=== PATIENT | female | born 1975 | race Caucasian/White ===

== ENCOUNTER 2024-09-27 00:20 | Day surgery (SDC) | payer OTHER, SELFPAY ==
[2024-09-20 14:54] VITALS: BMI 30.8
[2024-09-27 09:14] VITALS: BP 143/85; PULSE 74; RESP 16; TEMP 35.9; O2SAT 100; BMI 30.6
[2024-09-27 09:20] LABS: BEDSIDEPREGUCG Negative (Negative)
[2024-09-27] MEDS: LACTATED RINGERS 1,000 ML 150 ML IV CONT (09:25)
--- NOTE | 2024-09-27 09:46 | WPDANESEPPF ---
Anes - Initial Pre Proc Eval Procedure: Operation Date: 09/27/24 10:30 Proposed Procedures p Colonoscopy - Asher Villalta MD Date/Time: 09/27/24 09:46 Surgeon: Asher Villalta MD Pre Op Diagnosis: Fatigue Patient Data Age: 49 Gender: F Height: 1.55 m Weight: 73.5 kg Last Vital Signs Temp 35.9 C L 09/27/24 09:14 Pulse 74 09/27/24 09:14 Resp 16 09/27/24 09:14 BP 143/85 H 09/27/24 09:14 Pulse Ox 100 09/27/24 09:14 O2 Del Method Room Air 09/27/24 09:14 Allergies Allergy/AdvReac Type Severity Reaction Status Date / Time hyoscyamine (From Levsin) Allergy Severe SEE Verified 09/27/24 09:10 COMMENT BOX Home Medications ?Medication ?Instructions ?Recorded ?Confirmed ?Type sertraline 100 mg tablet (Zoloft) 100 mg PO DAILY 03/15/23 09/27/24 History alprazolam 0.5 mg tablet 0.5 mg PO DAILY PRN anxiety 07/26/24 09/20/24 History tirzepatide (weight loss) 2.5 2.5 mg (0.5 mL) subcut WEEKLY 4 09/10/24 09/27/24 Rx mg/0.5 mL subcutaneous solution weeks #2 mL (Zepbound) cholecalciferol (vitamin D3) 1,250 1,250 mcg PO WEEKLY #12 tabs 09/12/24 09/27/24 Rx mcg (50,000 unit) tablet Laboratory Tests 09/27/24 09:18 POC Urine HCG, Qual Negative (Negative) Patient hx anesthesia problems: none Family hx anesthesia problems: none Results Review: All pre-operative results and documents have been reviewed as part of the pre-operative evaluation. 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 Gender identity (if verbalized by the patient): Female Sexual Orientation (if Verbalized by the Patient): Straight or Heterosexual Spiritual care concerns: No Agree to blood products: Yes Anes - Eval Final PreProcedure Day of Procedure 09/27/24 09:46 Patient weight: obese Heart: regular rate and rhythm Lungs: clear to auscultation Airway: Mallampati scale class II Neurological: alert and oriented Last oral intake: >/= 8 hours ASA classification: II Emergent: no Anesthetic plan: proceed Anesthesia type and monitoring: general GIVS and standard monitoring Results Review: All pre-operative results and documents have been reviewed as part of the pre-operative evaluation. Informed Consent: The patient's anesthetic plan and its attendant risks and benefits were discussed with the patient/family/POA. Questions were solicited and answers provided to the satisfaction of the patient/family/POA.
--- NOTE | 2024-09-27 10:02 | PM.IMHP ---
H&P: HPI History of Present Illness Date/Time: 09/27/24 10:02 Chief Complaint: Screening colonoscopy Narrative: This is the patient's first colonoscopy. There are no GI symptoms and there is no family history of colorectal cancer. 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 Smoking status: Former smoker Tobacco type: cigarettes Smoking end date: 07/31/24 Alcohol intake: current Alcohol use details: socially Substance use: never Substance use type: does not use Do You Feel Safe in your Home?: Yes Lack of Transportation: No Lack of Food: Sometimes True Current Housing: I Have Housing Concerned About Future Housing: No Difficulty Paying Gas/Electric Bills: No Difficulty Paying for Meds: No Currently Unemployed: No Education: High School Diploma/GED Difficulty w/ Childcare or Family Care: No Living arrangements: with family Occupation/Education: occupation Additional occupation/education comments: [employer] 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 Gender identity (if verbalized by the patient): Female Sexual Orientation (if Verbalized by the Patient): Straight or Heterosexual Spiritual care concerns: No Agree to blood products: Yes Meds Home Medications and Allergies Home Medications ?Medication ?Instructions ?Recorded ?Confirmed ?Type sertraline 100 mg tablet (Zoloft) 100 mg PO DAILY 03/15/23 09/27/24 History alprazolam 0.5 mg tablet 0.5 mg PO DAILY PRN anxiety 07/26/24 09/20/24 History tirzepatide (weight loss) 2.5 2.5 mg (0.5 mL) subcut WEEKLY 4 12/31/24 01/17/25 Rx mg/0.5 mL subcutaneous solution weeks #2 mL (Zepbound) cholecalciferol (vitamin D3) 1,250 1,250 mcg PO WEEKLY #12 tabs 09/12/24 09/27/24 Rx mcg (50,000 unit) tablet Allergies Allergy/AdvReac Type Severity Reaction Status Date / Time hyoscyamine (From Levsin) Allergy Severe SEE Verified 09/27/24 09:10 COMMENT BOX Vital Signs Vital Signs - 24 hr 09/27/24 09:14 Temperature 96.6 F L Pulse Rate 74 Respiratory Rate 16 Blood Pressure 143/85 H Pulse Oximetry 100 Oxygen Delivery Room Air Exam Const: General: cooperative and healthy appearing Resp: Effort & Inspection: normal respiratory effort and able to speak in complete sentences Auscultation: clear to auscultation bilaterally Cardio: Rate: regular rate Rhythm: regular rhythm GI: Inspection: normal to inspection GI Palp: No No hepatosplenomegaly present Auscultation: normal bowel sounds Rectal Exam: deferred Skin: General skin exam: normal color Psych: Appearance: grossly normal Mental Status: mental status grossly normal Assessment and Plan Assessment and plan (1) Encounter for screening colonoscopy: Code(s): Z12.11 - Encounter for screening for malignant neoplasm of colon Status: Acute Assessment and Plan: The patient is deemed a good candidate for the procedure. Consent signed. Will proceed.
[2024-09-27 10:28] VITALS: BP 120/80; PULSE 73; RESP 25; O2SAT 100
[2024-09-27 10:38] VITALS: BP 138/87; PULSE 73; RESP 21; O2SAT 100
[2024-09-27 10:48] VITALS: BP 141/84; PULSE 54; RESP 18; O2SAT 100
--- OUTSIDE RECORDS SUMMARY | 2024-10-03 04:41 | XMS_ITS | Data Portability ---
Author Organization [place] - [employer], Main Office Address [address] [place] [address] Care Team Providers Care Sourcing Analyst Name Role Phone SCOT LAUREANO Primary Care Provider SCOT LAUREANO Referring Provider Assessment Encounter Date Assessment Date Assessment LastModified by Organization Details LastModified Time 06/24/2024 06/24/2024 49-year-old female presents for evaluation of her right knee. She reports 3-4 months of atraumatic pain that is getting progressively worse. It is worse at the end of the day after she has been standing all day, with swelling, and posterior pain. 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 She has been taking ibuprofen, heat, has not had any other treatments. She currently rates pain as 5/10. She denies having any catching or locking up of the knee, just swelling. Review of systems per patient questionnaire Physical exam: 1+ effusion. Tenderness palpation over the lateral joint line. Range of motion 0-140, discomfort with terminal flexion, negative Dany's. 1A Lorna, stable posterior drawer, stable varus and valgus stress. Sensation intact to light touch. X-rays of the knee were reviewed, demonstrating no acute bony abnormality, preserved joint space For her knee pain, we will begin with a course of conservative management. I recommend a course of meloxicam as well as physical therapy, however she says her schedule restrict her at so we will give her a home exercise program printout to do. We will see her back in approximately 6 weeks as needed. If she does not have improvement, we discussed next steps would be to consider doing a cortisone injection. She is in agreement with the plan. [email or web address] Not available 06/24/2024 11:15:26 Plan of Treatment Reminders Order Date Submit Date Provider Last Modified By Organization Details Last Modified Time Details Appointments None recorded. Lab None recorded. Referral None recorded. Procedures None recorded. Surgeries None recorded. Imaging XR, knee 2023 024 [email or web address] [facility], [address], [place], [address], 12:20:17 Medication Orders phentermine 37.5 mg tablet 2022 023 [email or web address] [facility] #[id number], [address], [place], [place], [id number], 09:16:56 alprazolam 0.5 mg tablet 2022 [facility]23 [facility] #[id number], [address], [place], [place], [id number], 09:15:20 meloxicam 15 mg tablet 2023 024 [email or web address] [facility] #35323, [address], [place], [place], [id number], 12:20:17 Patient TargetsNo targets recorded. Patient InstructionsNo instructions recorded. Reason for Referral None Reported. Results Created Date Observation Date Name Description Value Unit Range Abnormal Flag Note LastModifiedBy Organization Detail LastModifiedTime 11/08/1911/08/2022 COLOG UARD cologuard result cancel led - duplic ate order not applic able Not Available [facility] (Cologuard Orders Only) [address], [place], [address], 11/08/2022 09:16:16 11/07/19 23 11/07/2022 VITAM IN D,25- OH,TO IRAJ,I A vitamin D,25-oh,tota l,ia 19 NG/mL 30-100 low Vitam in D Statu s 25-OH Vitam in D: Defic iency : <20 ng/mL Insuf ficie ncy: 20 - 29 ng/mL Optim al: > or = 30 ng/mL For 25-OH Vitam in D testi ng on patie nts on D2-brantley pplem entat ion and patie nts for whom quant itati on of D2 and D3 fract ions is requi red, the [employer] Assur eD(TM ) 25-OH VIT D, (D2,D 3), LC/MS /MS is recom mt d: order code 28027 (dutch ents >2yrs ). See Note 1 NO COLLE CTION DATE RECEI ROSALIND. WE HAVE USED THE DATE THE SPECI MEN WAS RECEI ROSALIND BY THIS LABOR ATORY THE COLLE CTION DATE. IF THIS IS INCOR RECT, RASHIDA Doyle CONTA CT CLIEN T SERVI DESTIN. PHONE NUMBE R: [phone] Note 1 For addit ional infor rashida dias refer to http: //[facility] omar martin.Que stDia gnost ics.c om/fa q/FAQ 199 (This link is being provi ded for infor teodora mancini/ educorlando toure purpo ses only. ) Not Available [facility] [address] [place], [address], 11/07/2022 10:47:01 11/07/19 23 11/07/2022 TSH TSH 1.76 mIU/L normal Refer ence Range > or = 20 Years 0.40- 4.50 Pregn fany Range s First trime ster 0.26- 2.66 Secon d trime ster 0.55- 2.73 Third trime ster 0.43- 2.91 Not Available [facility] [address] [place], [address], 11/07/2022 10:47:00 11/07/19 23 11/07/2022 ANTIN UCLEA R ANTIB ODIES TITER AND PATTE RN ROSI titer 1:80 titer high A low level ROSI titer may be prese nt in pre-c linic al autoi mmune disea ses and luis alberto l indiv idual s. Refer ence Range <1:40 Negat soraida 1:40- 1:80 Low Antib umang Level >1:80 [place] catherine Antib umang Level Not Available [facility] [address] [address] [address], [place], [address], 11/07/2022 10:46:59 11/07/19 23 11/07/2022 ANTIN UCLEA R ANTIB ODIES TITER AND PATTE RN ROSI pattern nuclea r, homoge neous abnormal Homog eneou s patte rn is assoc iated with syste bev lupus eryth emato lloyd (SLE) , drug- induc ed lupus and josseline ile idiop athic arthr itis. AC-1: Homog eneou s Inter natio nal Conse nsus on ROSI Patte rns (http s://d oi.or g/10. 1515/ [facility]- 2017- 0052) Not Available [facility] [address] [address] [address], [place], [address], 11/07/2022 10:46:59 11/07/19 23 11/07/2022 ROSI SCREE N, IFA, W/REF L TITER /RAVEN FACUNDO (REFL ) ROSI screen, ifa positi ve negati ve abnormal ROSI IFA is a first line scree n for detec ting the prese nce of up to appro ximat jackeline 150 autoa ntibo dies in vario us autoi mmune disea ses. A posit soarida ROSI IFA resul t is sugge stive of autoi mmune disea se and refle xes to titer and patte rn. Furth er labor atory testi ng may be consi dered if clini jessica indic ated. For addit ional infor rashida dias e refer to http: //[facility] omar martin.Que stDia gnost ics.c om/fa q/FAQ 177 (This link is being provi ded for infor matitalo nal/ educa alisson l purpo ses only. ) Not Available [facility] [address] [address], [place], [address], 11/07/2022 10:46:59 11/07/19 23 11/07/2022 C-NARCISO CTIVE PROTE IN C-reactive protein 2.3 mg/L <8.0 normal Not Available [address], [address], 11/07/2022 10:46:58 11/07/19 23 11/07/2022 RHEUM ATOID FACTO R rheumatoid factor <14 IU/mL <14 normal Not Available [address], [address], 11/07/2022 10:46:57 11/07/19 23 11/07/2022 CBC (INCL UDES DIFF/ PLT) white blood cell count 6.3 thous and/u L 3.8-10 .8 normal Not Available [address], [address], 11/07/2022 10:46:56 11/07/19 23 11/07/2022 CBC (INCL UDES DIFF/ PLT) red blood cell count 4.80 baudilio on/uL 3.80-5 .10 normal Not Available [address], [address], 11/07/2022 10:46:56 11/07/19 23 11/07/2022 CBC (INCL UDES DIFF/ PLT) hemoglobin 14.5 g/dL 11.7-1 5.5 normal Not Available [address], [address], 11/07/2022 10:46:56 11/07/19 23 11/07/2022 CBC (INCL UDES DIFF/ PLT) hematocrit 42.8 % 35.0-4 5.0 normal Not Available [address], [address], 11/07/2022 10:46:56 11/07/19 23 11/07/2022 CBC (INCL UDES DIFF/ PLT) MCV 89.2 fL 80.0-1 00.0 normal Not Available [address], [address], 11/07/2022 10:46:56 11/07/19 23 11/07/2022 CBC (INCL UDES DIFF/ PLT) MCH 30.2 pg 27.0-3 3.0 normal Not Available [address], [address], 11/07/2022 10:46:56 11/07/19 23 11/07/2022 CBC (INCL UDES DIFF/ PLT) MCHC 33.9 g/dL 32.0-3 6.0 normal Not Available [address], [address], 11/07/2022 10:46:56 11/07/19 23 11/07/2022 CBC (INCL UDES DIFF/ PLT) RDW 12.5 % 11.0-1 5.0 normal Not Available [address], [address], 11/07/2022 10:46:56 11/07/19 23 11/07/2022 CBC (INCL UDES DIFF/ PLT) platelet count 273 thous and/u L 140-40 0 normal Not Available [address], [address], 11/07/2022 10:46:56 11/07/19 23 11/07/2022 CBC (INCL UDES DIFF/ PLT) MPV 10.1 fL 7.5-12 .5 normal Not Available [facility] [address], [address], 11/07/2022 10:46:56 11/07/19 23 11/07/2022 CBC (INCL UDES DIFF/ PLT) absolute neutrophils 3364 cells /uL 1500-7 800 normal Not Available [address], [address], 11/07/2022 10:46:56 11/07/19 23 11/07/2022 CBC (INCL UDES DIFF/ PLT) absolute lymphocytes 2249 cells /uL 850-39 00 normal Not Available [address], [address], 11/07/2022 10:46:56 11/07/19 23 11/07/2022 CBC (INCL UDES DIFF/ PLT) absolute monocytes 586 cells /uL 200-95 0 normal Not Available [address], [address], 11/07/2022 10:46:56 11/07/19 23 11/07/2022 CBC (INCL UDES DIFF/ PLT) lymphocytes 35.7 % normal Not Available [address], [address], 11/07/2022 10:46:56 11/07/19 23 11/07/2022 CBC (INCL UDES DIFF/ PLT) absolute eosinophils 82 cells /uL 15-500 normal Not Available [address], [address], 11/07/2022 10:46:56 11/07/19 23 11/07/2022 CBC (INCL UDES DIFF/ PLT) absolute basophils 19 cells /uL 0-200 normal Not Available [address], [address], 11/07/2022 10:46:56 11/07/19 23 11/07/2022 CBC (INCL UDES DIFF/ PLT) neutrophils 53.4 % normal Not Available [address], [address], 11/07/2022 10:46:56 11/07/19 23 11/07/2022 CBC (INCL UDES DIFF/ PLT) monocytes 9.3 % normal Not Available [address], [address], 11/07/2022 10:46:56 11/07/19 23 11/07/2022 CBC (INCL UDES DIFF/ PLT) eosinophils 1.3 % normal Not Available [address], [address], 11/07/2022 10:46:56 11/07/19 23 11/07/2022 CBC (INCL UDES DIFF/ PLT) basophils 0.3 % normal Not Available [address], [address], 11/07/2022 10:46:56 11/07/19 23 11/07/2022 SED RATE BY MODIF IED WESTE RGREN sed rate by modified westergren 2 mm/h < or = 20 normal Not Available [address], [address], 11/07/2022 10:46:56 11/07/19 23 11/07/2022 COMPR EHENS SORAIDA METAB OLIC PANEL urea nitrogen (BUN) 14 mg/dL 7-25 normal Not Available [address], [address], 11/07/2022 10:46:55 11/07/19 23 11/07/2022 COMPR EHENS SORAIDA METAB OLIC PANEL glucose 75 mg/dL 65-99 normal Fasti ng refer ence inter dion Not Available [address], [address], 11/07/2022 10:46:55 11/07/19 23 11/07/2022 COMPR EHENS SORAIDA METAB OLIC PANEL creatinine 0.88 mg/dL 0.50-0 .99 normal Not Available [address], [address], 11/07/2022 10:46:55 11/07/19 23 11/07/2022 COMPR EHENS SORAIDA METAB OLIC PANEL eGFR 82 mL/mi n/1.7 3m2 > or = 60 normal The eGFR is based on the CKD-E PI 2020 equat ion. To calcu late the new eGFR from a previ ous Creat inine or Cysta sariah C resul t, go to https ://wendy garibay.o renée/shaun ramirez s/ kdoqi /gfr% 5Fcal culat or Not Available [address] [address] [place], [address], 11/07/2022 10:46:55 11/07/19 23 11/07/2022 COMPR EHENS SORAIDA METAB OLIC PANEL BUN/creatini ne ratio not applic able (calc ) 6-22 Not Available [address] [place], [address], 11/07/2022 10:46:55 11/07/19 23 11/07/2022 COMPR EHENS SORAIDA METAB OLIC PANEL sodium 137 mmol/ L 135-14 6 normal Not Available [address] [address] [place], [address], 11/07/2022 10:46:55 11/07/19 23 11/07/2022 COMPR EHENS SORAIDA METAB OLIC PANEL potassium 4.2 mmol/ L 3.5-5. 3 normal Not Available [address] [address] [place], [address], 11/07/2022 10:46:55 11/07/19 23 11/07/2022 COMPR EHENS SORAIDA METAB OLIC PANEL chloride 102 mmol/ L 98-110 normal Not Available [facility] [address] [address] [place], [address], 11/07/2022 10:46:55 11/07/19 23 11/07/2022 COMPR EHENS SORAIDA METAB OLIC PANEL carbon dioxide 25 mmol/ L 20-32 normal Not Available [facility] [address] [address] [place], [address], 11/07/2022 10:46:55 11/07/19 23 11/07/2022 COMPR EHENS SORAIDA METAB OLIC PANEL calcium 9.1 mg/dL 8.6-10 .2 normal Not Available [address], [address], 11/07/2022 10:46:55 11/07/19 23 11/07/2022 COMPR EHENS SORAIDA METAB OLIC PANEL protein, total 6.7 g/dL 6.1-8. 1 normal Not Available [address], [address], 11/07/2022 10:46:55 11/07/1911/07/2022 COMPR EHENS SORAIDA METAB OLIC PANEL albumin 4.2 g/dL 3.6-5. 1 normal Not Available [address], [address], 11/07/2022 10:46:55 11/07/19 23 11/07/2022 COMPR EHENS SORAIDA METAB OLIC PANEL globulin 2.5 g/dL_ (calc ) 1.9-3. 7 normal Not Available [address], [address], 11/07/2022 10:46:55 11/07/19 23 11/07/2022 COMPR EHENS SORAIDA METAB OLIC PANEL albumin/glob ulin ratio 1.7 (calc ) 1.0-2. 5 normal Not Available [address], [address], 11/07/2022 10:46:55 11/07/19 23 11/07/2022 COMPR EHENS SORAIDA METAB OLIC PANEL bilirubin, total 0.3 mg/dL 0.2-1. 2 normal Not Available [address], [address], 11/07/2022 10:46:55 11/07/19 23 11/07/2022 COMPR EHENS SORAIDA METAB OLIC PANEL alkaline phosphatase 55 U/L 31-125 normal Not Available [address], [address], 11/07/2022 10:46:55 11/07/19 23 11/07/2022 COMPR EHENS SORAIDA METAB OLIC PANEL AST 19 U/L 10-35 normal Not Available [address], [address], 11/07/2022 10:46:55 11/07/19 23 11/07/2022 COMPR EHENS SORAIDA METAB OLIC PANEL ALT 20 U/L 6-29 normal Not Available [address], [address], 11/07/2022 10:46:55 11/07/19 23 11/07/2022 LIPID PANEL (REFL ) triglyceride s 49 mg/dL <150 normal Not Available [address], [address], 11/07/2022 10:46:54 11/07/19 23 11/07/2022 LIPID PANEL (REFL ) cholesterol, total 221 mg/dL <200 high Not Available [address], [address], 11/07/2022 10:46:54 11/07/19 23 11/07/2022 LIPID PANEL (REFL ) HDL cholesterol 90 mg/dL > or = 50 normal Not Available [address], [address], 11/07/2022 10:46:54 11/07/19 23 11/07/2022 LIPID PANEL (REFL ) LDL-choleste rol 116 mg/dL _(lelo c) high Refer ence range : <100 Norris able range <100 mg/dL for prima ry preve ntion ; <70 mg/dL for patie nts with CHD or diabe tic patie nts with > or = 2 CHD risk facto rs. LDL-C is now calcu lated using the Coretta n-Hop kins calcu todditalo n, which is a valid ated novel metho d salvadori ashley mcclain than the Fried christiana equat ion in the estim ation of LDL-C . Coretta martin SS et al. MARSHA. 2013; 310(1 9): 2061- 2068 (http ://ed ucati on.Qu estBracketz. com/f aq/FA Q164) Not Available [facility] [address] [address] [place], [address], 11/07/2022 10:46:54 11/07/19 23 11/07/2022 LIPID PANEL (REFL ) chol/HDLC ratio 2.5 (calc ) <5.0 normal Not Available [address] [address] [address] , [place], [address], 11/07/2022 10:46:54 11/07/19 23 11/07/2022 LIPID PANEL (REFL ) non HDL cholesterol 131 mg/dL _(lelo c) <130 high For patie nts with diabe chantal plus 1 major ASCVD risk facto r, treat ing to a non-H DL-C goal of <100 mg/dL (LDL- C of <70 mg/dL ) is maxx mccain optio n. Not Available [facility] [address] [address] [address] , [place], [address], 11/07/2022 10:46:54 08/24/20 23 08/24/2023 CBC/C OMPLE TE BLD COUNT W/DIF F white blood cells 9.5 x10'3 /uL 4.2-10 .8 Not Available [facility] (Lab) [address] [place], [address], 08/24/2023 20:03:42 08/24/20 23 08/24/2023 CBC/C OMPLE TE BLD COUNT W/DIF F red blood cells 4.54 x10'6 /uL 3.80-5 .20 Not Available [facility] (Lab) [address] [facility] [place], [address], 08/24/2023 20:03:42 08/24/20 23 08/24/2023 CBC/C OMPLE TE BLD COUNT W/DIF F hemoglobin 14.0 g/dL 12.0-1 5.6 Not Available [facility] (Lab) [address] [place], [address], 08/24/2023 20:03:42 08/24/20 23 08/24/2023 CBC/C OMPLE TE BLD COUNT W/DIF F hematocrit 42.7 % 35.7-4 5.7 Not Available [facility] (Lab) [address] [place], [address], 08/24/2023 20:03:42 08/24/20 23 08/24/2023 CBC/C OMPLE TE BLD COUNT W/DIF F mean red cell volume 94.1 fL 82.0-9 9.0 Not Available [facility] (Lab) [address] [place], [address], 08/24/2023 20:03:42 08/24/20 23 08/24/2023 CBC/C OMPLE TE BLD COUNT W/DIF F mean red cell hemoglobin 30.8 pg 27.0-3 3.0 Not Available [facility] (Lab) [address] [place], [address], 08/24/2023 20:03:42 08/24/20 23 08/24/2023 CBC/C OMPLE TE BLD COUNT W/DIF F mean RBC HGB concentratio n 32.8 g/dL 31.0-3 6.0 Not Available [facility] (Lab) [address] [place], [address], 08/24/2023 20:03:42 08/24/20 23 08/24/2023 CBC/C OMPLE TE BLD COUNT W/DIF F red cell distribution width 13.0 % 11.8-1 5.5 Not Available [facility] (Lab) [address] [place], [address], 08/24/2023 20:03:42 08/24/20 23 08/24/2023 CBC/C OMPLE TE BLD COUNT W/DIF F platelets 270 x10'3 /uL 150-40 0 Not Available [facility] (Lab) [address] [place], [address], 08/24/2023 20:03:42 08/24/20 23 08/24/2023 CBC/C OMPLE TE BLD COUNT W/DIF F mean platelet volume 10.2 fL 9.0-12 .4 Not Available [facility] (Lab) [address] [place], [address], 08/24/2023 20:03:42 08/24/20 23 08/24/2023 CBC/C OMPLE TE BLD COUNT W/DIF F neutrophils 59.1 % 39.0-7 2.0 Not Available [facility] (Lab) [address] [place], [address], 08/24/2023 20:03:42 08/24/20 23 08/24/2023 CBC/C OMPLE TE BLD COUNT W/DIF F lymphocytes 29.1 % 16.0-4 7.0 Not Available [facility] (Lab) [address] [place], [address], 08/24/2023 20:03:42 08/24/20 23 08/24/2023 CBC/C OMPLE TE BLD COUNT W/DIF F monocytes 10.1 % 5.0-12 .0 Not Available [facility] (Lab) [address] [place], [address], 08/24/2023 20:03:42 08/24/20 23 08/24/2023 CBC/C OMPLE TE BLD COUNT W/DIF F eosinophils 1.0 % 1.0-7. 0 Not Available [facility] (Lab) [address] [place], [address], 08/24/2023 20:03:42 08/24/20 23 08/24/2023 CBC/C OMPLE TE BLD COUNT W/DIF F basophils 0.4 % 0.0-2. 0 Not Available [facility] (Lab) [address] [place], [address], 08/24/2023 20:03:42 08/24/20 23 08/24/2023 CBC/C OMPLE TE BLD COUNT W/DIF F immature granulocytes 0.3 % 0.00-0 .50 Not Available [facility] (Lab) [address] [place], [address], 08/24/2023 20:03:42 08/24/20 23 08/24/2023 CBC/C OMPLE TE BLD COUNT W/DIF F neutrophils, absolute count 5.63 x10'3 /uL 1.5-8. 0 Not Available [facility] (Lab) [address] [place], [address], 08/24/2023 20:03:42 08/24/20 23 08/24/2023 CBC/C OMPLE TE BLD COUNT W/DIF F lymphocytes, absolute count 2.78 x10'3 /uL 1.07-3 .43 Not Available [facility] (Lab) [address] [place], [address], 08/24/2023 20:03:42 08/24/20 23 08/24/2023 CBC/C OMPLE TE BLD COUNT W/DIF F monocytes, absolute count 0.96 x10'3 /uL 0.29-0 .99 Not Available [facility] (Lab) [address] [place], [address], 08/24/2023 20:03:42 08/24/20 23 08/24/2023 CBC/C OMPLE TE BLD COUNT W/DIF F eosinophils, absolute count 0.10 x10'3 /uL 0.02-0 .53 Not Available [facility] (Lab) [address] [place], [address], 08/24/2023 20:03:42 08/24/20 23 08/24/2023 CBC/C OMPLE TE BLD COUNT W/DIF F basophils, absolute count 0.04 x10'3 /uL 0.01-0 .08 Not Available [facility] (Lab) [address] [place], [address], 08/24/2023 20:03:42 08/24/20 23 08/24/2023 CBC/C OMPLE TE BLD COUNT W/DIF F immature granulocytes ,absolute 0.03 x10'3 /uL 0.00-0 .05 Not Available [facility] (Lab) [address] [place], [address], 08/24/2023 20:03:42 08/24/20 23 08/24/2023 CBC/C OMPLE TE BLD COUNT W/DIF F nucleated red blood cells 0.0 % -0 Not Available [facility] (Lab) [address] [place], [address], 08/24/2023 20:03:42 08/24/20 23 08/24/2023 CBC/C OMPLE TE BLD COUNT W/DIF F NRBC# 0.00 x10'3 /uL Not Available [facility] (Lab) [address] [place], [address], 08/24/2023 20:03:42 08/24/20 23 08/24/2023 COMPR EHENS SORAIDA METAB OLIC PANEL sodium 138 mmol/ L 137-14 5 Not Available [facility] (Lab) [address] [place], [address], 08/24/2023 20:13:33 08/24/20 23 08/24/2023 COMPR EHENS SORAIDA METAB OLIC PANEL potassium 4.3 mmol/ L 3.5-5. 1 Not Available [facility] (Lab) [address] [place], [address], 08/24/2023 20:13:33 08/24/20 23 08/24/2023 COMPR EHENS SORAIDA METAB OLIC PANEL chloride 104 mmol/ L 98-107 Not Available [facility] (Lab) [address] [place], [address], 08/24/2023 20:13:33 08/24/20 23 08/24/2023 COMPR EHENS SORAIDA METAB OLIC PANEL carbon dioxide 27 mmol/ L 22-30 Not Available [facility] (Lab) [address] [place], [address], 08/24/2023 20:13:33 08/24/20 23 08/24/2023 COMPR EHENS SORAIDA METAB OLIC PANEL anion gap 11.3 mmol/ L 14-22 low Not Available [facility] (Lab) [address] [place], [address], 08/24/2023 20:13:33 08/24/20 23 08/24/2023 COMPR EHENS SORAIDA METAB OLIC PANEL glucose 84 mg/dL 70-99 Not Available [facility] (Lab) [address] [place], [address], 08/24/2023 20:13:33 08/24/20 23 08/24/2023 COMPR EHENS SORAIDA METAB OLIC PANEL BUN 14 mg/dL 8-19 Not Available [facility] (Lab) [address] [place], [address], 08/24/2023 20:13:33 08/24/20 23 08/24/2023 COMPR EHENS SORAIDA METAB OLIC PANEL creatinine 0.79 mg/dL 0.66-1 .25 Not Available [facility] (Lab) [address] [place], [address], 08/24/2023 20:13:33 08/24/20 23 08/24/2023 COMPR EHENS SORAIDA METAB OLIC PANEL GFR >60 Refer ence Range : [place] GFR Healt hy Adult : >60 mL/mi n/1.7 3 m2 Chron ic Kidne y Disea se: 15-60 mL/mi n/1.7 3 m2 Kidne y Failu re: <15/m L/min /1.73 m2 www.n iddk. nih.g ov The MDRD study equat ion has not been valid ated in child liz <18 years of age; pregn ant women ; the elder ly >85 years of age; or in some racia l or ethni c subgr oups, such as Hispa nics. Outsi de the valid ated sal eters , estim ated GFR is less accur ate, requi ring clini lelo judgm ent on a case- by-ca se basis . Clini lelo inter preta tion for other races and ages must be made by the clini jv. The MDRD study equat ion has not been valid ated for the evalu ation of serum creat inine relat ed to nutri alisson l statu s or medic ation usage . For perso ns <18 years of age, a pedia tric GFR calcu lator is avail able on the [facility] websi te: https ://wendy almazan.pedro garibay.o rg/pr ofess ional s/kdo qi/gf r_cal culat or Not Available [facility] (Lab) [address] [place], [address], 08/24/2023 20:13:33 08/24/20 23 08/24/2023 COMPR EHENS SORAIDA METAB OLIC PANEL alkaline phosphatase 65 U/L 38-126 Not Available [facility] (Lab) [address] [place], [address], 08/24/2023 20:13:33 08/24/20 23 08/24/2023 COMPR EHENS SORAIDA METAB OLIC PANEL alanine aminotransfe rase 33 U/L 0-35 Not Available [facility] (Lab) [address] [facility], [address], 08/24/2023 20:13:33 08/24/20 23 08/24/2023 COMPR EHENS SORAIDA METAB OLIC PANEL aspartate aminotransfe rase 37 U/L 15-37 Not Available [facility] (Lab) [address] [place], [address], 08/24/2023 20:13:33 08/24/20 23 08/24/2023 COMPR EHENS SORAIDA METAB OLIC PANEL bilirubin, total 0.40 mg/dL 0.20-1 .30 Not Available [facility] (Lab) [address] [place], [address], 08/24/2023 20:13:33 08/24/20 23 08/24/2023 COMPR EHENS SORAIDA METAB OLIC PANEL calcium 9.2 mg/dL 8.4-10 .2 Not Available [facility] (Lab) [address] [place], [address], 08/24/2023 20:13:33 08/24/20 23 08/24/2023 COMPR EHENS SORAIDA METAB OLIC PANEL total protein 7.5 g/dL 6.3-8. 2 Not Available [facility] (Lab) [address] [place], [address], 08/24/2023 20:13:33 08/24/20 23 08/24/2023 COMPR EHENS SORAIDA METAB OLIC PANEL albumin 4.3 g/dL 3.4-5. 0 Not Available [facility] (Lab) [address] [place], [address], 08/24/2023 20:13:33 08/24/20 23 08/24/2023 COMPR EHENS SORAIDA METAB OLIC PANEL globulin 3.2 g/dL 2.6-4. 2 Not Available [facility] (Lab) [address] [place], [address], 08/24/2023 20:13:33 08/24/20 23 08/24/2023 COMPR EHENS SORAIDA METAB OLIC PANEL A/G ratio 1.3 ratio 1.0-2. 0 Not Available [facility] (Lab) [address] [place], [address], 08/24/2023 20:13:33 11/24/19 24 11/24/2023 CBC/C OMPLE TE BLD COUNT W/DIF F white blood cells 6.5 x10'3 /uL 4.2-10 .8 Not Available [facility] (Lab) [address] [place], [address], 11/24/2023 20:20:12 11/24/19 24 11/24/2023 CBC/C OMPLE TE BLD COUNT W/DIF F red blood cells 4.73 x10'6 /uL 3.80-5 .20 Not Available [facility] (Lab) [address] [place], [address], 11/24/2023 20:20:12 11/24/19 24 11/24/2023 CBC/C OMPLE TE BLD COUNT W/DIF F hemoglobin 14.3 g/dL 12.0-1 5.6 Not Available [facility] (Lab) [address] [place], [address], 11/24/2023 20:20:12 11/24/19 24 11/24/2023 CBC/C OMPLE TE BLD COUNT W/DIF F hematocrit 44.5 % 35.7-4 5.7 Not Available [facility] (Lab) [address] [place], [address], 11/24/2023 20:20:12 11/24/19 24 11/24/2023 CBC/C OMPLE TE BLD COUNT W/DIF F mean red cell volume 94.1 fL 82.0-9 9.0 Not Available [facility] (Lab) [address] [place], [address], 11/24/2023 20:20:12 11/24/19 24 11/24/2023 CBC/C OMPLE TE BLD COUNT W/DIF F mean red cell hemoglobin 30.2 pg 27.0-3 3.0 Not Available [facility] (Lab) [address] [place], [address], 11/24/2023 20:20:12 11/24/19 24 11/24/2023 CBC/C OMPLE TE BLD COUNT W/DIF F mean RBC HGB concentratio n 32.1 g/dL 31.0-3 6.0 Not Available [facility] (Lab) [address] [place], [address], 11/24/2023 20:20:12 11/24/19 24 11/24/2023 CBC/C OMPLE TE BLD COUNT W/DIF F red cell distribution width 13.5 % 11.8-1 5.5 Not Available [facility] (Lab) [address] [place], [address], 11/24/2023 20:20:12 11/24/19 24 11/24/2023 CBC/C OMPLE TE BLD COUNT W/DIF F platelets 257 x10'3 /uL 150-40 0 Not Available [facility] (Lab) [address] [place], [address], 11/24/2023 20:20:12 11/24/19 24 11/24/2023 CBC/C OMPLE TE BLD COUNT W/DIF F mean platelet volume 10.3 fL 9.0-12 .4 Not Available [facility] (Lab) [address] [place], [address], 11/24/2023 20:20:12 11/24/19 24 11/24/2023 CBC/C OMPLE TE BLD COUNT W/DIF F neutrophils 47.1 % 39.0-7 2.0 Not Available [facility] (Lab) [address] [place], [address], 11/24/2023 20:20:12 11/24/19 24 11/24/2023 CBC/C OMPLE TE BLD COUNT W/DIF F lymphocytes 41.3 % 16.0-4 7.0 Not Available [facility] (Lab) [address] [place], [address], 11/24/2023 20:20:12 11/24/19 24 11/24/2023 CBC/C OMPLE TE BLD COUNT W/DIF F monocytes 8.7 % 5.0-12 .0 Not Available [facility] (Lab) [address] [place], [address], 11/24/2023 20:20:12 11/24/19 24 11/24/2023 CBC/C OMPLE TE BLD COUNT W/DIF F eosinophils 2.0 % 1.0-7. 0 Not Available [facility] (Lab) [address] [place], [address], 11/24/2023 20:20:12 11/24/19 24 11/24/2023 CBC/C OMPLE TE BLD COUNT W/DIF F basophils 0.6 % 0.0-2. 0 Not Available [facility] (Lab) [address] [place], [address], 11/24/2023 20:20:12 11/24/19 24 11/24/2023 CBC/C OMPLE TE BLD COUNT W/DIF F immature granulocytes 0.3 % 0.00-0 .50 Not Available [facility] (Lab) [address] [place], [address], 11/24/2023 20:20:12 11/24/19 24 11/24/2023 CBC/C OMPLE TE BLD COUNT W/DIF F neutrophils, absolute count 3.05 x10'3 /uL 1.5-8. 0 Not Available [facility] (Lab) [address] [place], [address], 11/24/2023 20:20:12 11/24/19 24 11/24/2023 CBC/C OMPLE TE BLD COUNT W/DIF F lymphocytes, absolute count 2.67 x10'3 /uL 1.07-3 .43 Not Available [facility] (Lab) [address] [place], [address], 11/24/2023 20:20:12 11/24/19 24 11/24/2023 CBC/C OMPLE TE BLD COUNT W/DIF F monocytes, absolute count 0.56 x10'3 /uL 0.29-0 .99 Not Available [facility] (Lab) [address] [place], [address], 11/24/2023 20:20:12 11/24/19 24 11/24/2023 CBC/C OMPLE TE BLD COUNT W/DIF F eosinophils, absolute count 0.13 x10'3 /uL 0.02-0 .53 Not Available [facility] (Lab) [address] [place], [address], 11/24/2023 20:20:12 11/24/19 24 11/24/2023 CBC/C OMPLE TE BLD COUNT W/DIF F basophils, absolute count 0.04 x10'3 /uL 0.01-0 .08 Not Available [facility] (Lab) [address] [place], [address], 11/24/2023 20:20:12 11/24/19 24 11/24/2023 CBC/C OMPLE TE BLD COUNT W/DIF F immature granulocytes ,absolute 0.02 x10'3 /uL 0.00-0 .05 Not Available [facility] (Lab) [address] [place], [address], 11/24/2023 20:20:12 11/24/19 24 11/24/2023 CBC/C OMPLE TE BLD COUNT W/DIF F nucleated red blood cells 0.0 % -0 Not Available [facility] (Lab) [address] [place], [address], 11/24/2023 20:20:12 11/24/19 24 11/24/2023 CBC/C OMPLE TE BLD COUNT W/DIF F NRBC# 0.00 x10'3 /uL Not Available [facility] (Lab) [address] [place], [address], 11/24/2023 20:20:12 11/24/19 24 11/24/2023 RHEUM ATOID FACTO R rf <8.6 IU/mL 0.0-11 .9 Not Available [facility] (Lab) [address] [place], [address], 11/24/2023 20:45:41 11/24/19 24 11/24/2023 T3 TOTAL T3, total 1.450 NG/mL 0.970- 1.690 Not Available [facility] (Lab) [address] [place], [address], 11/24/2023 21:05:57 11/24/19 24 11/24/2023 SEDIM ENTAT ION RATE erythrocyte sedimentatio n rate 14 mm/HR 0-20 Not Available [facility] (Lab) [address] [place], [address], 11/24/2023 20:47:55 11/24/19 24 11/24/2023 T4 FREE free T4 0.88 NG/dL 0.78-2 .19 Not Available [facility] (Lab) [address] [place], [address], 11/24/2023 20:51:56 11/24/19 24 11/24/2023 TSH thyroid-stim ulating hormone 0.942 uIU/m L 0.465- 4.680 Not Available [facility] (Lab) [address] [place], [address], 11/24/2023 21:05:55 11/24/19 24 11/28/2023 ROSI BY IFA RFX TITER /RAVEN FACUNDO antinuclear antibodies, ifa Positi ve abnormal Negat soraida <1:80 Borde rline 1:80 Posit soraida >1:80 Perfo rmed at: CB - [facility] [address] [facility], [place] [address] Lab Direc tor: Mustapha pires PhD, Phone : [phone] Not Available [facility] (Lab) [address] [place] [address], [address], 11/28/2023 09:13:10 11/24/19 24 11/28/2023 ROSI BY IFA RFX TITER /RAVEN FACUNDO homogeneous pattern 1:80 ICAP ashanti mcneil re: AC-1 Not Available [facility] (Lab) [address] [place], [address], 11/28/2023 09:13:10 11/24/19 24 11/28/2023 ROSI BY IFA RFX TITER /RAVEN FACUNDO anasp4 Commen t abnormal . [facility] ----- ----- --- ----- ----- ----- ----- ----- ----- ----- ----- ----- Homog eneou s Syste bev Lupus Eryth emato lloyd, Drug Induc ed Syste bev Lupus Eryth emato lloyd, Chron ic Autoi mmune hepat itis, Josseline ile Idiop athic Arthr itis ----- ----- --- ----- ----- ----- ----- ----- ----- ----- ----- ----- Speck led Sjogr en Syndr ome, Syste bev Lupus Eryth emato lloyd, Subac [place] Cutan eous Lupus , Neona iraj Lupus , Conge nital Heart Block , Mixed Conne ctive Tissu e Disea se, Scler oderm a-dif fuse, Scler oderm a-Aut oimmu ne Myosi tis Overl ap Syndr ome, Syste bev Lupus Eryth emato lloyd-S clero derma -Auto immun e Myosi tis Overl ap Syndr ome, Syste bev Autoi mmune Rheum atic Disea se, Undif anabela chappell Conne ctive Tissu e Disea se ----- ----- --- ----- ----- ----- ----- ----- ----- ----- ----- ----- Nucle olar Syste bev Scler osis, Scler oderm a-Aut oimmu ne Myosi tis Overl ap Syndr ome, Sjogr en Syndr ome, Shakira ud pheno jessica , Pulmo nary Arter ial Hyper tensi on, Syste bev Autoi mmune Rheum atic Disea se, Cance r ----- ----- --- ----- ----- ----- ----- ----- ----- ----- ----- ----- Centr omere Scler oderm a-CRE ST, Limit ed Cutan eous SSc, Shakira ud's Pheno jessica , Prima ry Bilia ry Chola ngiti s ----- ----- --- ----- ----- ----- ----- ----- ----- ----- ----- ----- Nucle ar Dot Prima ry Bilia ry Chola ngiti s ----- ----- --- ----- ----- ----- ----- ----- ----- ----- ----- ----- Nucle ar Prima ry Bilia ry Chola ngiti s, Autoi mmune Membr ane Hepat itis/ Liver disea se, Syste bev Autoi mmune Rheum atic Disea se, Autoi mmune Cytop enias , Linea r Scler oderm a, Antip hosph olipi d Syndr ome ----- ----- --- ----- ----- ----- ----- ----- ----- ----- ----- ----- Perfo rmed at: CB - [facility] [address] [facility], [place] [address] Lab Direc tor: Mustapha pires PhD, Phone : [phone] Not Available [facility] (Lab) [address] [place], [address], 11/28/2023 09:13:10 12/04/19 24 12/04/2023 COMPR EHENS SORAIDA METAB OLIC PANEL sodium 138 mmol/ L 137-14 5 Not Available [facility] (Lab) [address] [place], [address], 12/04/2023 19:13:13 12/04/19 24 12/04/2023 COMPR EHENS SORAIDA METAB OLIC PANEL potassium 3.7 mmol/ L 3.5-5. 1 Not Available [facility] (Lab) [address] [place], [address], 12/04/2023 19:13:13 12/04/19 24 12/04/2023 COMPR EHENS SORAIDA METAB OLIC PANEL chloride 106 mmol/ L 98-107 Not Available [facility] (Lab) [address] [place], [address], 12/04/2023 19:13:13 12/04/19 24 12/04/2023 COMPR EHENS SORAIDA METAB OLIC PANEL carbon dioxide 25 mmol/ L 22-30 Not Available [facility] (Lab) [address] [place], [address], 12/04/2023 19:13:13 12/04/19 24 12/04/2023 COMPR EHENS SORAIDA METAB OLIC PANEL anion gap 10.7 mmol/ L 14-22 low Not Available [facility] (Lab) [address] [place], [address], 12/04/2023 19:13:13 12/04/19 24 12/04/2023 COMPR EHENS SORAIDA METAB OLIC PANEL glucose 52 mg/dL 70-99 low Not Available [facility] (Lab) [address] [place], [address], 12/04/2023 19:13:13 12/04/19 24 12/04/2023 COMPR EHENS SORAIDA METAB OLIC PANEL BUN 15 mg/dL 8-19 Not Available [facility] (Lab) [address] [place], [address], 12/04/2023 19:13:13 12/04/19 24 12/04/2023 COMPR EHENS SORAIDA METAB OLIC PANEL creatinine 0.69 mg/dL 0.66-1 .25 Not Available [facility] (Lab) [address] [place], [address], 12/04/2023 19:13:13 12/04/19 24 12/04/2023 COMPR EHENS SORAIDA METAB OLIC PANEL GFR >60 Refer ence Range : [place] GFR Healt hy Adult : >60 mL/mi n/1.7 3 m2 Chron ic Kidne y Disea se: 15-60 mL/mi n/1.7 3 m2 Kidne y Failu re: <15/m L/min /1.73 m2 www.n iddk. nih.g ov The MDRD study equat ion has not been valid ated in child liz <18 years of age; pregn ant women ; the elder ly >85 years of age; or in some racia l or ethni c subgr oups, such as Hispa nics. Outsi de the valid ated sal eters , estim ated GFR is less accur ate, requi ring clini lelo judgm ent on a case- by-ca se basis . Clini lelo inter preta tion for other races and ages must be made by the clini jv. The MDRD study equat ion has not been valid ated for the evalu ation of serum creat inine relat ed to nutri alisson l statu s or medic ation usage . For perso ns <18 years of age, a pedia tric GFR calcu lator is avail able on the [facility] websi te: https ://ww w.kid lani.o rg/pr ofess ional s/kdo qi/gf r_cal culat or Not Available [facility] (Lab) [address] [place], [address], 12/04/2023 19:13:13 12/04/19 24 12/04/2023 COMPR EHENS SORAIDA METAB OLIC PANEL alkaline phosphatase 60 U/L 38-126 Not Available [facility] (Lab) [address] [place], [address], 12/04/2023 19:13:13 12/04/19 24 12/04/2023 COMPR EHENS SORAIDA METAB OLIC PANEL alanine aminotransfe rase 31 U/L 0-35 Not Available [facility] (Lab) [address] [place], [address], 12/04/2023 19:13:13 12/04/19 24 12/04/2023 COMPR EHENS SORAIDA METAB OLIC PANEL aspartate aminotransfe rase 32 U/L 15-37 Not Available [facility] (Lab) [address] [place], [address], 12/04/2023 19:13:13 12/04/19 24 12/04/2023 COMPR EHENS SORAIDA METAB OLIC PANEL bilirubin, total 0.40 mg/dL 0.20-1 .30 Not Available [facility] (Lab) [address] [place], [address], 12/04/2023 19:13:13 12/04/19 24 12/04/2023 COMPR EHENS SORAIDA METAB OLIC PANEL calcium 9.7 mg/dL 8.4-10 .2 Not Available [facility] (Lab) [address] [place], [address], 12/04/2023 19:13:13 12/04/19 24 12/04/2023 COMPR EHENS SORAIDA METAB OLIC PANEL total protein 7.2 g/dL 6.3-8. 2 Not Available [facility] (Lab) [address] [place], [address], 12/04/2023 19:13:13 12/04/19 24 12/04/2023 COMPR EHENS SOARIDA METAB OLIC PANEL albumin 4.4 g/dL 3.4-5. 0 Not Available [facility] (Lab) [address] [place], [address], 12/04/2023 19:13:13 12/04/19 24 12/04/2023 COMPR EHENS SORAIDA METAB OLIC PANEL globulin 2.8 g/dL 2.6-4. 2 Not Available [facility] (Lab) [address] [place], [address], 12/04/2023 19:13:13 12/04/19 24 12/04/2023 COMPR EHENS SORAIDA METAB OLIC PANEL A/G ratio 1.6 ratio 1.0-2. 0 Not Available [facility] (Lab) [address] [place], [address], 12/04/2023 19:13:13 12/04/19 24 12/06/2023 INSUL IN insulin 6.5 uIU/m L 2.6-24 .9 Perfo rmed at: - [facility] [address] [place] [address], [place] [address] Lab Direc tor: Mustapha pires PhD, Phone : [phone] Not Available [facility] (Lab) [address], [place], [address], 12/06/2023 11:12:54 08/22/20 23 08/22/2023 elect jc barry am No observ ation record ed. BARCODE Not Available 2022 17:44:22 08/23/20 23 08/22/2023 CT, chest , w/o contr ast [facility] [address] [facility] [address], [place] [address] Patien t Name: NYLA MCLEOD Access ion #: [id number] Sex: F : 1974 2 Dictat ed By: Sarah pete Attend ing Physic darrion: YARY LAUREANO ER Orderi ng Physic darrion: YARY LAUREANO ER Exam Date: 2022 16:05 PM Exam Name: CT CHEST WO Admitt ing Diagno sis(es ): CLINIC AL INFORM ATION: Chest pain. TECHNI QUE: Axial CT imagin g of the chest was perfor med withou t IV contra st. Sagitt al and silver l reform atted images were made, stored and review ed. Evalua tion is limite d withou t IV contra st. One or more of the follow ing dose reduct ion techni ques were used: Automa catherine exposu re contro l. Adjust ment of mA and/or kV accord ing to patien t size. CTDIvo l = 8.09 mGy DLP = 285.08 mGy-cm COMPAR IONA: None. FINDIN GS: Aorta: No aneury sm or signif icant calcif icatio n. Cardia c: Heart size is within normal limits . No signif icant calcif icatio n. Medias tinum/ tesfaye: No mass or adenop athy. Lungs: Lungs are clear. Pulmon leola arteri es: No gross abnorm ality. Chest wall: No mass or other abnorm ality. Upper abdome n: Visual ized struct ures in the upper abdome n are unrema rkable . Bones: No fractu re or suspic ious intrao sseous lesion s. IMPRES LUANN: No eviden ce of acute diseas e in the chest identi fied on noncon trast enhanc ed CT. Electr onical ly Signed by: Sarah pete at 2022 09:03: 57 AM Page 1 [email or web address] [facility] (Imaging) [address] [place], [address], 08/23/2023 14:41:23 08/23/20 23 08/22/2023 CT, chest , w/o contr ast No observ ation record ed. [email or web address] [facility] ([facility]) [address] [place], [address], 10/26/2023 09:11:28 12/08/19 24 12/07/2023 XR, thora cic spine , 3 view No observ ation record ed. [email or web address] [place], [address], 12/12/2023 09:54:27 12/08/19 24 12/07/2023 XR, lumba r spine No observ ation record ed. [email or web address] [address] [place], [address], 12/12/2023 09:54:50 12/08/19 24 12/07/2023 XR, cervi lelo spine No observ ation record ed. [email or web address] [place], [address], 12/12/2023 09:56:06 06/24/20 XR, knee No observ ation record ed. [email or web address] [facility] [address] [facility], [place], [address], 06/24/2024 09:20:34 08/06/20 24 08/06/2024 US, marily t, limit ed [facility] [address] [place] [address] Patien t Name: NYLA MCLEOD Access ion #: [id number] Sex: F : 1974 5 Dictat ed By: Pedro Rodriguez Attend ing Physic darrion: YARY LAUREANO ER Orderi ng Physic darrion: YARY LAUREANO ER Exam Date: 2023 10:19 AM Exam Name: US BREAST LIMITE D RT Admitt ing Diagno sis(es ): US OF THE RIGHT BREAST INDICA TION: palpab le lump rt breast TECHNI QUE: All 4 quadra nts, subare olar region and axilla ry region of the RIGHT breast were evalua catherine with ultras ound COMPAR IONA: Mammog adrianne dated the same FINDIN GS: No solid or suspic ious masses . No areas of taco ectura l distor tion. No malign ant adenop athy. Morpho logica lly benign -appea ring intram ammary lymph node is presen t at the 6 clock positi on, 1 cm from the nipple measur ing 0.5 cm. No domina nt cysts are presen t. IMPRES LUANN: There is no sonogr aphic eviden ce for malign fany. Annual screen ing mammog ca recomm ended. ACR Bi Rads Catego ry:Cat egory 2 Electr onical ly Signed by: Pedro Rodriguez at 2023 12:10: 44 PM Page [email or web address] (Imaging) [address] [place], [address], 08/12/2024 12:15:30 08/06/20 24 08/06/2024 MAMMO , diagn ostic , digit al, bilat eral No observ ation record ed. [email or web address] ([facility]) [address] [place], [address], 08/12/2024 12:16:43 08/06/20 24 08/06/2024 MAMMO , diagn ostic , tomos ynthe sis, bilat eral [facility] [address] [facility] [place] [address] Patien t Name: NYLA MCLEOD ion #: [id number] Sex: F : 1974 5 Dictat ed By: Sarah pete Attend ing Physic darrion: YARY LAUREANO ER Orderi ng Physic darrion: YARY LAUREANO ER Exam Date: 2023 10:07 AM Exam Name: MG DIAG BREAST ZOË BILAT Admitt ing Diagno sis(es ): PROCED URE: MG DIAG BREAST ZOË BILAT REASON FOR EXAM: RIGHT BREAST LUMP. Palpab le lump report ed in the right breast and near the nipple , as well as around the 5 to 6 o'cloc k positi on. No person al histor y of breast cancer or prior breast interv ention . No family histor y of breast cancer report ed. COMPAR IONA: DIGITA L MAMM, BILAT SCREEN ING 2D on DOS: , DIGITA L DIAGNO STIC MAMM on DOS: 03/16/12 TECHNI QUE:ML , spot compre ssion cranio caudal and modifi ed mediol ateral obliqu e views of the right breast are obtain ed. Bilate ral CC and MLO views are obtain ed. 3-D imagin g with tomosy nthesi s combin ed with 2-D imagin g were acquir ed. Diagno stic right breast ultras ound was obtain ed to evalua te the areas of clinic al concer n. FINDIN GS: BREAST COMPOS ITION: C - The breast s are hetero geneou sly dense, which may obscur e small masses . Spot compre ssion views demons trate a questi onable area of increa sed densit y in the right lower inner breast , near the area of palpab le abnorm ality. No other abnorm ality identi fied in either breast on mammog adrianne. Target ed ultras ound images of the breast demons trates a hypoec hoic nodule in the area of clinic al concer n in the 6:00 a.m. Positi on of the left breast approx imatel y 1 cm from the nipple . The nodule demons trates a fatty hilum, most consis tent in appear ance with a benign intram ammary lymph node. No abnorm ality identi fied in the retroa reolar region on ultras ound and no Page 1 [facility] [address] [facility] [place] [address] Patien t Name: NYLA MCLEOD Access ion #: [id number] Sex: F : 1974 5 Dictat ed By: Sarah pete Attend ing Physic darrion: GEORGI POWER Orderi ng Physic darrion: YARY LAUREANO ER Exam Date: 2023 10:07 AM Exam Name: MG DIAG BREAST ZOË BILAT Admitt ing Diagno sis(es ): abnorm ality identi fied in the right axilla . IMPRES LUANN: Probab ly benign findin g in the right breast mammog adrianne and ultras ound. RECOMM ENDATI ON: Recomm end target ed right breast ultras ound in 6 months . Correl ation with clinic al findin gs is needed . If the mass remain s clinic ally suspic ious, breast surger y consul tation could be consid ered. ASSESS MENT: BIRADS : 3 - Probab ly Benign Electr onical ly Signed by: Sarah pete at 2023 11:28: 13 AM Page [address] (Imaging) [address] [place], [address], 08/12/2024 12:16:44 08/06/20 24 08/06/2024 MAMMO , diagn ostic , digit al, bilat eral No observ ation record ed. [address] ([facility] Sched[facility]) [address] [place], [address], 08/12/2024 12:16:44 Result Notes None recorded. Problems Name Problem SNOMED Code Status Onset Date Resolution Date Notes Provider Name and Address Organization Details Recorded Time Celluliti s 271619603 Completed Not Available [employer] 3 03:07:21 Has a sore throat 451061681 Active 2021 Not Available [facility] 3 03:07:21 Irritable bowel syndrome with diarrhea 881321497 Active 2019 Not Available [facility] 3 03:07:21 Abdominal pain 69860935 Completed Not Available [facility] 3 03:07:21 Malaise and fatigue 176550357 Active Not Available [facility] 3 03:07:21 Knee pain Completed Not Available [facility] 3 03:07:21 Depressiv e disorder 60176640 Active Not Available [facility] 3 03:07:21 Ingrowing nail 118242372 Active Not Available [facility] 3 03:07:21 Onychomyc osis 376520930 Active Not Available [facility] 3 03:07:21 Eczema 29022582 Completed Not Available [facility] 3 03:07:22 Otitis 82175278 Completed Not Available [facility] 3 03:07:22 Anxiety 39724354 Active 2019 Not Available [facility] 3 03:07:22 Pain in wrist 05408464 Completed Not Available [facility] 3 03:07:22 Essential hypertens ion 07124947 Active Not Available [facility] 3 03:07:22 Tinea pedis 2461018 Active Not Available [facility] 3 03:07:22 Vitamin deficienc y 31679795 Active Not Available [facility] 3 03:07:22 Bilateral glaucoma 38897425442 637816 Active 2022 Carolann Dodd MA null, [place] [facility] [employer] 3 15:40:15 Lateral epicondyl itis of left humerus 58574614382 9100 Active 2022 Tae Garza MD [address] [place] [address], [address] , [facility] [employer] 3 11:20:06 Overweigh t 744300877 Active 2022 Tae Garza MD [address], [address], [place], [address] , [place] [facility] 3 11:20:19 Pulmonary embolism 27032499 Active 2022 Chani Quintero LPN null, [place] [facility] 3 13:15:01 Serum creatinin e above reference range 743144597 Active 2022 Scot Laureano MD [address], [address], [place], [address] , [place] [facility] [place] [facility] 3 17:14:21 Vitamin D deficienc y 47639885 Active 2023 NURIA Olivarez [address], [address], [place], [address] , [place] [facility] 4 17:48:10 Fatigue 33910694 Active 2023 Denia Lanier PLANNING DIRECTOR null, [place] [facility] 4 14:05:19 Hyperglyc emia 68046730 Active 2023 Nyla martin RMA null, [place] [facility] 4 13:55:40 Hypoglyce jodi 927956713 Active 2023 Nyla martin RMA null, [place] [facility] 4 13:57:31 Generaliz ed anxiety disorder 27996733 Active 2023 Emmie Fontenot NP [address], [address], [place], [address] , [place] [facility] 4 10:17:44 Acute sinusitis 65788992 Active 2023 Chani Quintero LPN null, [place] [facility] 4 09:16:44 Pain of right knee joint [id number] 4100 Active 2023 Radha Kincaid FURS SALESPERSON null, [place] [facility] [place] [facility] 4 09:20:13 Alopecia areata of eyelash Active 2023 Chani Quintero LPN null, [facility] [employer] 4 09:45:13 Breast lump [id number] Active 2023 Chani Quintero LPN null, [facility] [employer] [facility] 4 10:58:20 Problem Notes None recorded. Procedures Surgical History Date Name Laterality Status Provider Name and Address Organization Details Recorded Time 3 Cortisone Injection (Dequervains/ Greater Trochantric/ Lateral Epicondylitis/ Shoulder/ Subacromial Space/ Knee or Trigger Finger) completed Tae Garza MD [address], [address], [facility] [employer] [facility] [employer] 06/07/2023 20:02:19 Imaging Results Imaging Date Name Status LastModified by Organization Details LastModified Time 08/22/2023 electrocardiogram completed BARCODE Informa tion not available 08/22/2023 17:44:22 08/22/2023 CT, chest, w/o contrast completed [email or web address] [place] [address] (Imaging) [address] [place], [address], 08/23/2023 14:41:23 08/22/2023 CT, chest, w/o contrast completed [email or web address] ([facility] Scheduling) [address] [place], [address], 10/26/2023 09:11:28 12/07/2023 XR, thoracic spine, 3 view completed [email or web address] [place], [address], 12/12/2023 09:54:27 12/07/2023 XR, lumbar spine completed [email or web address] [facility] [address] [place], [address], 12/12/2023 09:54:50 12/07/2023 XR, cervical spine completed [email or web address] [place] [address] 2[address] [place], [address], 12/12/2023 09:56:06 06/24/2024 XR, knee completed [email or web address] [address] [facility], [place], [address], 06/24/2024 09:20:34 08/06/2024 US, breast, limited completed [email or web address] [facility] (Imaging) [address] [place], [address], 08/12/2024 12:15:30 08/06/2024 MAMMO, diagnostic, digital, bilateral completed [email or web address] [facility] ([facility] Scheduling) [address] [place], [address], 08/12/2024 12:16:43 08/06/2024 MAMMO, diagnostic, tomosynthesis, bilateral completed [email or web address] [facility] (Imaging) [address] [place], [address], 08/12/2024 12:16:44 08/06/2024 MAMMO, diagnostic, digital, bilateral completed [email or web address] [facility] ([facility] Scheduling) [address] [place], [address], 08/12/2024 12:16:44 Procedure Notes None recorded. Medical Equipment None Reported. Allergies Allergen ID Allergen Name Allergen Category Reaction Reaction Severity Criticality Documentation Date Start Date Code Code System Note Provider Name and Address Organization Details Recorded Time 5683 Levsin medicatio n Not available Not available Not available 11/09/2022 99610 3 RxNorm Not Available [facility] 3 03:16:37 Medications Name Sig Start Date Stop Date Status Note LastModified by Organization Details LastModified Time cyclobenz aprine 10 mg tablet TAKE 1 TABLET 3 TIMES A DAY BY ORAL ROUTE NEEDED. active Not Available Not Available No t Available amoxicill in 500 mg capsule TAKE 1 CAPSULE BY MOUTH THREE TIMES DAILY FOR 7 DAYS 06/24 completed Not Available Not Available Not Available buspirone 5 mg tablet TAKE 1 TABLET BY MOUTH TWICE A DAY 04/22 completed Not Available Not Available Not Available lisinopri l 20 mg-hydroc hlorothia zide 12.5 mg tablet Take 1 tablet every day by oral route. 06/24 completed Not Available Not Available Not Available azithromy mack 250 mg tablet TAKE 2 TABLETS (500 MG) BY ORAL ROUTE ONCE DAILY FOR 1 DAY THEN 1 TABLET (250 MG) BY ORAL ROUTE ONCE DAILY FOR 4 DAYS 02/01 completed Not Available Not Available Not Available ibuprofen 800 mg tablet TAKE 1 TABLET BY MOUTH EVERY 6 HOURS NEEDED active Not Available Not Available No t Available fluconazo le 150 mg tablet TAKE 1 TABLET BY MOUTH NOW THEN REPEAT IN 3 DAYS 04/22 completed Not Available Not Available Not Available benzonata te 200 mg capsule Take 1 capsule 3 times a day by oral route. active Not Available Not Available No t Available valacyclo vir 1 gram tablet TAKE 2 TABLETS BY MOUTH EVERY 12 HOURS FOR 2 DOSES. active Not Available Not Available No t Available hydrocodo ne 5 mg-acetam inophen 325 mg tablet 12/24 completed Not Available Not Available Not Available meloxicam 15 mg tablet TAKE 1 TABLET BY MOUTH EVERY DAY active Not Available Not Available No t Available Nicoderm CQ 21 mg/24 hr daily transderm al patch Apply 1 patch(es ) EVERY DAY by transder mal route. 02/01 completed Not Available Not Available Not Available sertralin e 100 mg tablet TAKE 1 TABLET BY MOUTH EVERY DAY 06/24 completed Not Available Not Available Not Available methylpre dnisolone 4 mg tablet 12/24 completed Not Available Not Available Not Available clindamyc in HCl 150 mg capsule TAKE 3 CAPSULES BY MOUTH EVERY 8 HOURS UNTIL ALL TAKEN 06/24 completed Not Available Not Available Not Available bimatopro st 0.03 % eye drops APPLY 1 DROP TOPICALL Y TO APPLICAT OR AND APPLY TO UPPER EYELID, ALONG EYELASHE S, ONCE DAILY, AT NIGHTTIM E active Not Available Not Available No t Available metronida zole 500 mg tablet Take 1 tablet twice a day by oral route. 02/01 completed Not Available Not Available Not Available phentermi ne 37.5 mg tablet TAKE 1 TABLET BY MOUTH EVERY DAY 06/24 completed Not Available Not Available Not Available chlorthal idone 25 mg tablet 12/24 completed Not Available Not Available Not Available sulfameth oxazole 800 mg-trimet hoprim 160 mg tablet Take 1 tablet every 12 hours by oral route for 10 days. 10/26 completed Not Available Not Available Not Available tramadol 50 mg tablet TAKE 1-2 TABLETS BY MOUTH EVERY 6 HOURS NEEDED FOR PAIN 11/17 completed Not Available Not Available Not Available spironola ctone 25 mg tablet 12/24 completed Not Available Not Available Not Available amoxicill in 500 mg tablet TAKE 1 TABLET BY MOUTH THREE TIMES A DAY 04/22 completed Not Available Not Available Not Available meloxicam 7.5 mg tablet 03/19 completed Not Available Not Available Not Available Nicoderm CQ 7 mg/24 hr daily transderm al patch Apply 1 patch(es ) EVERY DAY by transder mal route. 02/01 completed Not Available Not Available Not Available alprazola m 0.5 mg tablet TAKE 1 TABLET BY MOUTH THREE TIMES DAILY NEEDED 06/24 completed Not Available Not Available Not Available propranol ol 10 mg tablet 05/28 completed Not Available Not Available Not Available amoxicill in 875 mg tablet TAKE 1 TABLET BY MOUTH EVERY 12 HOURS UNTIL GONE 11/02 completed Not Available Not Available Not Available alprazola m 0.25 mg tablet 12/24 completed Not Available Not Available Not Available lorazepam 0.5 mg tablet 07/09 completed Not Available Not Available Not Available Lamisil 250 mg tablet Take 1 tablet every day by oral route. 02/01 completed Not Available Not Available Not Available Nicoderm CQ 14 mg/24 hr daily transderm al patch Apply 1 patch(es ) EVERY DAY by transder mal route. 02/01 completed Not Available Not Available Not Available baclofen 10 mg tablet 10/26 completed Not Available Not Available Not Available desoximet asone 0.25 % topical ointment APPLY A THIN LAYER TO THE AFFECTED AREA(S) BY TOPICAL ROUTE 2 TIMES PER DAY ; RUB IN GENTLY AND COMPLETE LY for 2 weeks 12/24 completed Not Available Not Available Not Available cephalexi n 500 mg capsule Take 1 capsule 4 times a day by oral route for 7 days. 05/29 completed Not Available Not Available Not Available cyanocoba sasha (vit B-12) 1,000 mcg/mL injection solution 03/19 completed Not Available Not Available Not Available triamcino lone acetonide 0.1 % topical ointment APPLY A THIN LAYER TO THE AFFECTED AREA(S) BY TOPICAL ROUTE 3 TIMES PER DAY 12/24 completed should be followed with heavy lotion like equate brand eucerin cream Not Available Not Available Not Available buspirone 10 mg tablet Take 1 tablet twice a day by oral route. 08/27 completed Not Available Not Available Not Available gabapenti n 300 mg capsule TAKE 1 CAPSULE BY MOUTH TWICE DAILY 06/24 completed Not Available Not Available Not Available hydroxyzi ne HCl 25 mg tablet TAKE 1 TABLET BY MOUTH EVERY DAY AT BEDTIME FOR 30 DAYS 05/25 completed Not Available Not Available Not Available ergocalci ferol (vitamin D2) 1,250 mcg (50,000 unit) capsule TAKE 1 CAPSULE BY MOUTH ONE TIME PER WEEK with food 06/24 completed Not Available Not Available Not Available clobetaso l 0.05 % topical ointment APPLY A THIN LAYER TO THE AFFECTED AREA(S) BY TOPICAL ROUTE 2 TIMES PER DAY 12/24 completed Not Available Not Available Not Available methylpre dnisolone 4 mg tablets in a dose pack TAKE 6 TABLETS ON DAY 1 DIRECTED ON PACKAGE AND DECREASE BY 1 TAB EACH DAY FOR A TOTAL OF 6 DAYS 11/02 completed Not Available Not Available Not Available ketoconaz ole 2 % topical cream APPLY TO THE AFFECTED AREA(S) twice daily 11/29 completed Not Available Not Available Not Available sertralin e 50 mg tablet Take 1 tablet every day by oral route. active Not Available Not Available No t Available doxycycli ne hyclate 100 mg tablet TAKE 1 TABLET BY MOUTH TWICE DAILY UNTIL ALL TAKEN 06/24 completed Not Available Not Available Not Available dicyclomi ne 10 mg capsule 03/19 completed Not Available Not Available Not Available spironola ctone 50 mg tablet TAKE 1 TABLET BY MOUTH EVERY DAY active Not Available Not Available No t Available progester one micronize d 100 mg capsule TAKE 1 CAPSULE BY MOUTH EVERY EVENING 06/24 completed Not Available Not Available Not Available amoxicill in 875 mg-potass ium clavulana te 125 mg tablet TAKE 1 TABLET BY MOUTH EVERY 12 HOURS FOR 10 DAYS active Not Available Not Available No t Available buspirone 15 mg tablet Take 1 tablet twice a day by oral route. active Not Available Not Available No t Available neomycin- polymyxin -hydrocor t 3.5 mg-10,000 unit/mL-1 % ear drops,lloyd p INSTILL 4 DROPS 4 TIMES A DAY BY OTIC ROUTE FOR 7 DAYS. 11/02 completed Not Available Not Available Not Available Daily-Vit e tablet TAKE 1 TABLET BY MOUTH EVERY DAY 03/19 completed Not Available Not Available Not Available escitalop adrianne 10 mg tablet TAKE 1 TABLET BY MOUTH DAILY 06/24 completed Not Available Not Available Not Available Ciprodex 0.3 %-0.1 % ear drops,lloyd pension INSTILL 4 DROPS INTO AFFECTED EAR(S) BY OTIC ROUTE 2 TIMES PER DAY FOR 7 DAYS 08/27 completed Not Available Not Available Not Available chlorhexi dine gluconate 0.12 % mouthwash SWISH AND SPIT 5ML BY MOUTH TWICE A DAY AFTER BRUSHING 06/24 completed Not Available Not Available Not Available Calcium 600 + D(3) 600 mg-10 mcg (400 unit) tablet TAKE 1 TABLET BY MOUTH TWICE A DAY 03/19 completed Not Available Not Available Not Available bimatopro st 0.03 % drops with applicato r, eyelash base APPLY 1 DROP TO APPLICAT OR AND APPLY TO UPPER EYELID, ALONG EYELASHE S, BY TOPICAL ROUTE ONCE DAILY AT NIGHTTIM E 2023 active Not Available Not Available Not Avai lable Paxlovid 300 mg (150 mg x 2)-100 mg tablets in a dose pack TAKE 2 NIRMATRE LVIR AND 1 RITONAVI R TABLETS BY MOUTH TOGETHER TWICE DAILY FOR 5 DAYS 11/02 completed Not Available Not Available Not Available Vitals Date Recorded Body height Body mass index (BMI) Body weight Body temperature Heart rate Oxygen saturation Oxygen saturation in Arterial blood by Pulse oximetry Systolic blood pressure Diastolic blood pressure Provider Name and Address Organization Details Last Updated DateTime 3 154.94 cm 30.6 kg/m2 64964.9 6 g 97.5 [degF] 96 /min 97 % 97 % 128 mm[Hg] 80 mm[Hg] Denia cook CMA [place] [facility] [place] [facility] 3 11:13:05 Date Recorded Body height Body mass index (BMI) Body weight Provider Name and Address Organization Details Last Updated DateTime 06/24/2024 152.4 cm 34 kg/m2 30236.07 g MITESH Wright - [place] [facility] 06/24/2024 09:14:30 Date Recorded Body mass index (BMI) Body height Oxygen saturation Oxygen saturation in Arterial blood by Pulse oximetry Heart rate Body temperature Body weight Systolic blood pressure Diastolic blood pressure Provider Name and Address Organization Details Last Updated DateTime 1 29.9 kg/m2 154.94 cm 97 % 97 % 80 /min 96.7 [degF] 93988.5 9 g 160 mm[Hg] 100 mm[Hg] Not Available [facility] 3 03:03:08 Date Recorded Body mass index (BMI) Body height Oxygen saturation Oxygen saturation in Arterial blood by Pulse oximetry Heart rate Body temperature Body weight Systolic blood pressure Diastolic blood pressure Provider Name and Address Organization Details Last Updated DateTime 3 28.5 kg/m2 154.94 cm 97 % 97 % 80 /min 98.1 [degF] 07507.4 5 g 140 mm[Hg] 80 mm[Hg] Not Available [facility] 3 03:03:08 Date Recorded Body mass index (BMI) Body height Oxygen saturation Oxygen saturation in Arterial blood by Pulse oximetry Heart rate Body temperature Body weight Systolic blood pressure Diastolic blood pressure Provider Name and Address Organization Details Last Updated DateTime 3 29.7 kg/m2 154.94 cm 98 % 98 % 77 /min 98.1 [degF] 21127 g 148 mm[Hg] 100 mm[Hg] Not Available [facility] 3 03:03:08 Social History Question Answer Notes LastModified by Organizat ion Details LastModified Time Tobacco Smoking Status Former Smoker 3 a day trying to quit Not Available [facility] 11/09/2022 02:46:17 What Is Your Level Of Alcohol Consumption? None [email or web address] Information not available 06/24/2024 What Is Your Level Of Caffeine Consumption? Heavy [id number] Information not available 11/09/2022 In The 14 Days Before Symptom Onset, Have You Had Close Contact With A Laboratory-confir med COVID-19 While That Case Was Ill? No [id number] Information not available 11/09/2022 In The 14 Days Before Symptom Onset, Have You Had Close Contact With A Person Who Is Under Investigation For COVID-19 While That Person Was Ill? No [id number] Information not available 11/09/2022 What Type Of Diet Are You Following? REGULAR [id number] Information not available 11/09/2022 Have You Ever Been Counseled For Unhealthy Alcohol Use? No [id number] Information not available 11/09/2022 Do You Use Any Illicit Or Recreational Drugs? No [id number] Information not available 11/09/2022 Has Tobacco Cessation Counseling Been Provided? No [id number] Information not available 11/09/2022 Have You Recently Traveled Abroad? No [id number] Information not available 11/09/2022 Do You Have Any Dietary Restrictions? No [id number] Information not available 11/09/2022 Do You Or Have You Ever Used Any Other Forms Of Tobacco Or Nicotine? No [id number] Information not available 11/09/2022 Sex: Female Functional Status Question Answer Note LastModified by Organizat ion Details LastModified Time What is your exercise level? None [id number] Information not available 11/09/2022 Mental Status None recorded. Family History Relationship Description Onset Age of this Age Resolved Age Notes LastModified by Organization Details LastModified Time Father Family history of stroke [email or web address] Not available 2023 09:17:50 Father Hypertensive disorder [email or web address] Not available 2023 09:18:03 Father Malignant tumor of prostate [email or web address] Not available 2023 09:18:16 Mother Hypertensive disorder [email or web address] Not available 2023 09:18:03 Notes:cancer-brother Medical History No medical history recorded. Gynecological History Statement/Question Response Date of Last Pap 04/30/2020 Current Control Method Tubal Ligat ion Obstetrics History GPAL:G 0 P 0 0 0 0 Immunizations Vaccine Type Date Status Note Provider Nam e and Address Organization Details Recorded Time Tdap 10/18/2016 completed Not Available [employer] 10/20/2023 04:56:54 Past Encounters Encounter ID Performer Location Encounter Start Date Encounter Closed Date Diagnosis/Indication Diagnosis SNOMED-CT Code Diagnosis ICD10 Code Diagnosis Note [id number] [facility] [place] [address] [facility] [place] [address] 05/25/2021 00:00:00 05/26/2021 06:32:39 [id number] [facility] [place] [address] [place] [address] [place] [address] 09/21/2022 00:00:00 09/21/2022 19:39:20 [id number] [facility] [place] [address] [place] [address] [place] [address] 11/02/2022 00:00:00 11/02/2022 13:52:09 [id number] Tae Garza MD [facility] [place] [address] [place] [address] [place] [address] 06/07/2023 10:54:44 06/07/2023 11:30:37 Lateral epicondylitis of left humerus 8668052531 00706 M77.12 Injected left elbow with cortisone Overweight 093038766 E66 .3 F/u in 1 month Anxiety 73496903 F41.9 [id number] Nader Perez MD [address] [address] 06/24/2024 08:31:30 06/24/2024 09:58:12 Pain of right knee joint 2081791480 72510 M25.561 Health Concerns Section Related Observation LastModified by Organization Detai ls LastModified Time None Recorded Concern Status LastModified by Organization Details LastModified Time None Recorded Advance Directives Directive None Recorded Payers Encounter Date Sequence Insurance Name Policy Number Policy Victor Covered Member ID Victor Member ID Guarantor Name 06/07/2023 1 [place] [id number] Nyla Mcleod [id number] Nyla Mcleod 06/24/2024 1 [place] [id number] Nyla Mcleod [id number] Nyla Mcleod Notes Date Note Type Note Provider Name and Address Organization Details Recorded Time 06/07/2023 text/html Here today for refills. Wants to start back on phentermine. It helped.Left elbow pain x 3 months. Was carrying a large bag of dog food and hyperextended it. Can not hold a pot of water with left hand. Pt needs a refill of alprazolam. Tae Garza MD [address] [facility] [address], [place], [address], [place] [facility] 06/07/2023 20:04:15 OBGyn Episode No OBEpisode recorded.
--- OUTSIDE RECORDS SUMMARY | 2024-10-03 04:42 | XMS_ITS | Patient Health Record ---
Author Organization [facility] Address [address] [address] Care Team Providers Care Order Packer Name Role Phone Scot Wright MD Primary Care Provider Unavail able Ania Cordoba [phone] Allergies Allergen (clinical drug ingredient) Drug/Non Drug Allergy documented on EMR Reaction Allergy Type Onset Date Status LamISIL Unknown Drug Allergy Active Reason For Referral No Information Medications Medication SIG (Take, Route, Fr equency, Duration) Notes Start Date End Date Status ALPRAZolam 0.5 MG 1 tablet Orally Twice a day Active Zoloft 100 MG 1 tablet Orally Once a day Active Gabapentin 300 MG TAKE 1 CAPSULE BY [facility] TWICE DAILY for 30 Active Vital Signs Heart Rate 102 /min 12/06/2023 Temperature 96.8 degrees Fahrenheit 12/06/2023 Oximetry 96 % 12/06/2023 Blood pressure diastolic 82 mm Hg 12/06/2023 Weight-kg 79.29 kg 12/06/2023 Blood pressure systolic 134 mm Hg 12/06/2023 Weight 174.8 lbs 12/06/2023 Encounters Encounter Location Date Provider Diagnosis [facility] [address] [facility] [address], [place] [address] 12/06/2023 Ania Du Pain in unspecified joint M25.50 ; ROSI positive R76.8 ; Lumbar back pain M54.50 and Neck pain, musculoskeletal M54.2 [facility] [address] [facility] [address], [place] [address] 12/18/2023 Ania Du Pain in unspecified joint M25.50 ; ROSI positive R76.8 ; Lumbar back pain M54.50 and Neck pain, musculoskeletal M54.2 [facility] [address] [facility] [address] [place] [address] 12/14/2023 Ania Adalid Assessments Encounter Date Diagnosis (ICD Code) Assessment Notes Treatment Notes Treatment Clinical Notes Section Notes 12/06/2023 Pain in unspecified joint (ICD-10 - M25.50) 48 year old fe male with aches and pains. ROSI was positive. I am asked to evaluate her for connective tissue disease. Serologies will be ordered. Xrays of the cervical, thoracic and lumbar spine will be ordered. I will make recommendations when these tests are completed. 12/06/2023 ROSI positive (ICD-10 - R76.8) 48 year old fem laurie with aches and pains. ROSI was positive. I am asked to evaluate her for connective tissue disease. Serologies will be ordered. Xrays of the cervical, thoracic and lumbar spine will be ordered. I will make recommendations when these tests are completed. 12/18/2023 Pain in unspecified joint (ICD-10 - M25.50) labs reviewed, ROSI again positive, other markers (-), does not meet criteria of lupus, will monitor, start PT and gabapentin for neck and back pain 12/18/2023 ROSI positive (ICD-10 - R76.8) labs reviewed, ROSI again positive, other markers (-), does not meet criteria of lupus, will monitor, start PT and gabapentin for neck and back pain 12/06/2023 Lumbar back pain (ICD-10 - M54.50) 48 year old fe male with aches and pains. ROSI was positive. I am asked to evaluate her for connective tissue disease. Serologies will be ordered. Xrays of the cervical, thoracic and lumbar spine will be ordered. I will make recommendations when these tests are completed. 12/06/2023 Neck pain, musculoskeletal (ICD-10 - M54.2) 48 year old fem laurie with aches and pains. ROSI was positive. I am asked to evaluate her for connective tissue disease. Serologies will be ordered. Xrays of the cervical, thoracic and lumbar spine will be ordered. I will make recommendations when these tests are completed. 12/18/2023 Lumbar back pain (ICD-10 - M54.50) labs reviewed, ROSI again positive, other markers (-), does not meet criteria of lupus, will monitor, start PT and gabapentin for neck and back pain 12/18/2023 Neck pain, musculoskeletal (ICD-10 - M54.2) labs reviewed, ROSI again positive, other markers (-), does not meet criteria of lupus, will monitor, start PT and gabapentin for neck and back pain Plan Of Treatment Pending Test Test Name Order Date X ray : Spines, cervical 2 views 024 X ray : Spines, lumbar complete 12/06/19 24 X ray : Thoracic spine 2 views 4 Creatine Kinase,Total,Serum 12/06/2023 Complement C4, Serum 12/06/2023 G-6-PD, Quant, Blood and RBC 12/06/2023 Urinalysis, Routine 12/06/2023 CBC With Differential/Platelet Sedimentation Rate-Westergren 12/06/2023 Complement C3, Serum 12/06/2023 Rheumatoid Arthritis Factor 12/06/2023 C-Reactive Protein, Quant 12/06/2023 HLA B 27 Disease Association 12/06/2023 Antihistone Antibodies 12/06/2023 Sjogren's Ab, Anti-SS-A/-SS-B 12/06/2023 Antiscleroderma-70 Antibodies 12/06/2023 Anti-dsDNA Antibodies 12/06/2023 Lupus Anticoagulant Reflex 12/06/2023 Anticardiolipin Ab, IgG/M, Qn 12/06/2023 Parvovirus B19, Human, IgG/IgM Beta-2 Glycoprotein I Ab,G,A,M CCP IgG Antibodies 12/06/2023 ROSI w/Reflex 12/06/2023 Hepatitis C antibody 12/06/2023 Chem-Comprehensive 12/06/2023 Monsalve Ab 12/06/2023 [employer]IDE PL[employer] TECHNICIAN Antibodies 12/06/2023 Insurance Providers Payer Name Payer Address Payer Phone Subscriber Number Group Number Insured Name Patient Relationship to Insured Coverage Start Date Coverage End Date [employer] [address] [place] [address] [id number] Nyla Puga Self - patient is the insured Medical (General) History Medical History History ICD Code anxiety High blood pressure depression Surgical History Surgery Date(Month/Year) D&C, vaginal reconstruction, LEEP, colpo scopy, cryotherapy - cervix
--- OUTSIDE RECORDS SUMMARY | 2024-10-03 04:42 | XMS_ITS ---
Author Organization [facility] Address [address] [address] Care Team Providers Care Mainspring Winder Name Role Phone Scot Wright MD Primary Care Provider Unavail able Ania Powers Unavailable [phone] Allergies Allergen (clinical drug ingredient) Drug/Non Drug Allergy documented on EMR Reaction Allergy Type Onset Date Status LamISIL Unknown Drug Allergy Active REASON FOR VISIT yd,f/u labs,cc, positive ROSI, PCP: Dr. Scot Wright, [address] [place] [address],tel [phone], fax [phone] Medications Medication SIG (Take, Route, Fr equency, Duration) Notes Start Date End Date Status Gabapentin 300 MG 1 capsule Orally twi ce a day for 30 days 12/18/2023 Active ALPRAZolam 0.5 MG 1 tablet Orally Twice a day Active Zoloft 100 MG 1 tablet Orally Once a day Active Encounters Encounter Location Date Provider Diagnosis [facility] [address] [address] 12/18/2023 Ania Powers Pain in unspecified joint M25.50 ; ROSI positive R76.8 ; Lumbar back pain M54.50 and Neck pain, musculoskeletal M54.2 Assessments Encounter Date Diagnosis (ICD Code) Assessment Notes Treatment Notes Treatment Clinical Notes Section Notes 12/18/2023 Pain in unspecified joint (ICD-10 - [...] gabapentin for neck and back pain 12/18/2023 Lumbar back pain (ICD-10 - M54.50) [...] neck and back pain Plan Of Treatment Medication Medication Name Sig Start Date Stop Date Notes Gabapentin 300 MG 1 capsule Orally twice a day for 30 days 12/18/2023 Progress Notes * Nyla MCLEOD LDOB:1975 (48 yo F)Acc No.[id number]:12/18/2023 Patient:?Nyla MCLEOD Provider:?ANIA POWERS MD :1975???Age:48 Y???Sex:Female D ate:12/18/2023 Address:[address] [place] [address] Pcp:Scot Wright MD Subjective: * Chief Complaints: * ???Yd,f/u labs,ccpositive AN APCP: Dr. Scot Wright, [facility] [place] [address], tel [phone], fax [phone] * HPI: ???General Follow up:?Synchronous video/audio telecommunication with [place] Patient has agreed to telehealth visit and is aware insurance will be billed for this visit Location: patient at home, physician in office. ???positive ROSI:? 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 She felt better after a few months. Back and neck have been hurting for a year. The left elbow and knees have been aching too. The pain is intermittent and worse at night. She has noticed swelling in the legs (L>R). Am stiffness: 1 hour. ROS: no oral uclers, +dry mouth, no dry eyes, no rash, +hair loss, no photosensitivity, no Raynaud's 12/07/2023, ROSI 1:160 (homogeneous), CR 0.85, AST/ALT normal, CBC normal, , anti-DNA/SM/RELATIONSHIP CONSULTANT/scl70/SSA/SSB (-), lupus anticoagulant (-), ACL IgM and IgA (-), G6PD normal, CK normal. ESR normal, CRP 0.96 (0-0.5), RF/CCP (-), HCV (-), C3 and C4 normal, UA normal, HLA-B27 (-),? 08/24/2023, CBC nornal CMP normal 11/04/2022, ROSI 1:80 (homogenous), RF (-), CRP and ESR normal. * ROS:?General / Constitutional:?Patient denies?change in appetite, chills, fatigue, fever, weight loss, weakness.?Comments?See HPI for details.?Musculoskeletal:?Comments?See HPI for details.?Skin:?Comments?See HPI for details .?Neurologic:?Patient denies?dizziness, gait abnormality, headache, tingling / numbness .? * Medical History:? * Surgical History:?D&C, vagin al reconstruction, LEEP, colposcopy, cryotherapy - cervix * Hospitalization/Major Diagno stic Procedure:? * Family History:? prostate cancer, stroke, arthritis. * Social History:?+smoking on and off since age 16. * Medications:?TakingALPRAZola m 0.5 MG Tablet 1 tablet Orally Twice a day Zoloft 100 MG Tablet 1 tablet Orally Once a day Taking ALPRAZolam 0.5 MG Tablet 1 tablet Orally Twice a day Taking Zoloft 100 MG Tablet 1 tablet Orally Once a day * Allergies:?LamISIL: Allergy - Criticality Unknownno[Allergies Verified] Objective: * Vitals:? * Examination: ???General Examination: ?General appearance:?alert, well-nourished and in no acute distress.?Head:?normocephalic, atraumatic.?Eyes:?normal.?Skin:?no rash.?Lungs:?respiratory effort normal.?Psychiatry: ?Affect / mood:?normal affect, normal mood.?Neurology: ???speech normal. Assessment: * Assessment: 1.?Pain in unspecified joint - M25.50 (Primary)?2.?ROSI positive - R76.8?3.?Lumbar back pain - M54.50?4.?Neck pain, musculoskeletal - M54.2? labs reviewed, ROSI again pos itive, other markers (-), does not meet criteria of lupus, will monitor, start PT and gabapentin for neck and back pain. Plan: * Treatment: * Procedure Codes:? * Billing Information: * Visit Code:? 98254 Office Visit, Est Pt., Level 4. Modifiers: 95 * Procedure Codes:? 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 She felt better after a few months. Back and neck have been hurting for a year. The left elbow and knees have been aching too. The pain is intermittent and worse at night. She has noticed swelling in the legs (L>R). Am stiffness: 1 hour. ROS: no oral uclers, +dry mouth, no dry eyes, no rash, +hair loss, no photosensitivity, no Raynaud's 12/07/2023, ROSI 1:160 (homogeneous), CR 0.85, AST/ALT normal, CBC normal, , anti-DNA/SM/RELATIONSHIP CONSULTANT/scl70/SSA/SSB (-), lupus anticoagulant (-), ACL IgM and IgA (-), G6PD normal, CK normal. ESR normal, CRP 0.96 (0-0.5), RF/CCP (-), HCV (-), C3 and C4 normal, UA normal, HLA-B27 (-), 08/24/2023, CBC nornal CMP normal 11/04/2022, ROSI 1:80 (homogenous), RF (-), CRP and ESR normal Examination Category Sub-Category Detail Notes Category Not es Neurology speech normal Psychiatry Affect / mood: normal affect, normal mood General Examination General appearance: alert, w ell-nourished and in no acute distress Head: normocephalic, atrau matic Eyes: normal Lungs: respiratory effort n ormal Skin: no rash
--- OUTSIDE RECORDS SUMMARY | 2024-10-03 04:42 | XMS_ITS ---
Author Organization [facility] Address [address] [facility] [address] [place] [address] Care Team Providers Care Corporate Associate Attorney Name Role Phone Scot Wright MD Primary Care Provider Unavail able Ania Cordoba [phone] REASON FOR VISIT labs/tele Encounters Encounter Location Date Provider Diagnosis [facility] [address] [facility] [address] [place] [address] 12/14/2023 Ania Cordoba Plan Of Treatment No Information Progress Notes * Nyla PUGA LDOB:1975 (48 yo F)Acc No.[id number]:12/14/2023 Patient:?Nyla PUGA :1975???Age:48 Y???Sex:Female Address:[address] [facility], [place], [address] * true * Date:? Generated for Printi ng/Faxing/eTransmitting on:?10/03/2024 04:41 AM PEDIATRIC DERMATOLOGIST
--- OUTSIDE RECORDS SUMMARY | 2024-10-03 04:42 | XMS_ITS ---
Author Organization [facility] Address [address] [facility] [address], [place] [address] Care Team Providers Care Aquaculture And Fisheries Professor Name Role Phone Scot Wright MD Primary Care Provider Unavail able Ania Powers Unavailable [phone] Allergies Allergen (clinical drug ingredient) Drug/Non Drug Allergy documented on EMR Reaction Allergy Type Onset Date Status LamISIL Unknown Drug Allergy Active REASON FOR VISIT positive ROSI, PCP: Dr. Scot Wright, [facility] [place] [address], tel [phone], fax [phone] Medications Medication SIG (Take, Route, Fr equency, Duration) Notes Start Date End Date Status Zoloft 100 MG 1 tablet Orally Once a day Active ALPRAZolam 0.5 MG 1 tablet Orally Twice a day Active Vital Signs Temperature 96.8 degrees Fahrenheit 12/06/19 24 Blood pressure systolic 134 mm Hg 12/06/19 24 Blood pressure diastolic 82 mm Hg 024 Heart Rate 102 /min 12/06/2023 Weight 174.8 lbs 12/06/2023 Oximetry 96 % 12/06/2023 Weight-kg 79.29 kg 12/06/2023 Encounters Encounter Location Date Provider Diagnosis [facility] [address] [facility] [address] [place] [address] 12/06/2023 Ania Powers Pain in unspecified joint M25.50 [...] recommendations when these tests are completed. 12/06/2023 Lumbar back pain (ICD-10 - M54.50) [...] make recommendations when these tests are completed. Plan Of Treatment Pending Test Test Name Order Date X ray : Spines, cervical 2 views 024 X ray : Spines, lumbar complete 12/06/19 24 X ray : Thoracic spine 2 views Creatine Kinase,Total,Serum 12/06/2023 Complement C4, Serum 12/06/2023 [...] antibody 12/06/2023 Chem-Comprehensive 12/06/2023 Monsalve Ab 12/06/2023 AUTO SERVICE DISPATCHER Antibodies 12/06/2023 Progress Notes * Nyla MCLEOD LDOB:1975 (48 yo F)Acc No.[id number]:12/06/2023 Progress Notes Patient:?Nyla MCLEOD Provider:?ANIA POWERS MD :1975???Age:48 Y???Sex:Female D ate:12/06/2023 Address:[address] [place] [address] Pcp:Scot Wright MD Subjective: * Chief Complaints: * ???positive ANAPCP: Dr. Stas Wright, [facility] [place] [address], tel [phone], fax [phone] * HPI: ???positive ROSI:? She saw me 10 years ago for [...] rash, +hair loss, no photosensitivity, no Raynaud's 08/24/2023, CBC nornal CMP normal 11/04/2022, ROSI 1:80 (homogenous), RF (-), CRP and ESR normal. * ROS:?General / Constitutional:?Patient denies?fever.?Patient complains of?fatigue.?Ophthalmologic:?Patient denies?dry eye(s).?ENT:?Patient denies?oral ulcers.?Endocrine:?Patient denies?heat intolerance.?Respiratory:?Patient denies?cough, shortness of breath.?Cardiovascular:?Patient denies?chest pain.?Gastrointestinal:?Patient denies?abdominal pain, blood in stool, diarrhea.?Hematology:?Patient denies?easy bleeding, easy bruising.?Musculoskeletal:?Patient complains of?see HPI.?Skin:?Patient complains of?see HPI.?Neurologic:?Patient denies?tingling / numbness.?Psychiatric:?Patient complains of?anxiety, depressed mood, difficulty sleeping.? * Medical History:? * Surgical History:?D&C, vagin al reconstruction, LEEP, colposcopy, cryotherapy - cervix * Hospitalization/Major Diagno stic Procedure:? * Family History:? prostate cancer, stroke, arthritis. * Social History:?+smoking on and off since age 16. * Medications:?TakingALPRAZola m 0.5 MG Tablet 1 tablet Orally Twice a day Zoloft 100 MG Tablet 1 tablet Orally Once a day Medication List reviewed and reconciled with the patientTaking ALPRAZolam 0.5 MG Tablet 1 tablet Orally Twice a day Taking Zoloft 100 MG Tablet 1 tablet Orally Once a day Medication List reviewed and reconciled with the patient * Allergies:?LamISIL: Allergy - Criticality Unknownno[Allergies Verified] Objective: * Vitals:?BP:134/82mm Hg, HR:1 02/min, Temp:96.8F, Oxygen sat %:96%, Wt:174.8lbs, Wt-k.29 kg. * Examination: ???General Examination: ?General appearance:?alert, well-nourished and in no acute distress?.?Head:?normocephalic, atraumatic?.?Eyes:?normal.?Ears:?normal?.?Neck / thyroid:?neck is supple, with full range of motion.?Lymph nodes:?no cervical lymphadenopathy.?Skin:?skin is warm and dry, with no rashes?.?Heart:?regular rate and rhythm.?Lungs:?clear to auscultation bilaterally.?Abdomen:?soft, nontender.?Psychiatry: ?Affect / mood:?appropriate.?Rheumatology: ???JOINT EXAM: no synovitis, no trigger points, +midline tenderness at LS and TS. ???Neurology: ???nonfocal. Assessment: * Assessment: 1.?Pain in unspecified joint - M25.50 (Primary)?2.?ROSI positive - R76.8?3.?Lumbar back pain - M54.50?4.?Neck pain, musculoskeletal - M54.2? 48 year old female with ache s and pains. ROSI was positive. I am asked to evaluate her for connective tissue disease. Serologies will be ordered. Xrays of the cervical, thoracic and lumbar spine will be ordered. I will make recommendations when these tests are completed. Plan: * Treatment: 2.?Lumbar back pain?Imaging: X ray : Spines, cervical 2 views ?Imaging: X ray : Spines, lumbar complete * ?Imaging: X ray : Thoracic spine 2 views* 3.?Neck pain, musculoskeletal?Imaging: X ray : Thoracic spine 2 views * ?Imaging: X ray : Spines, cervical 2 views * ?Imaging: X ray : Spines, lumbar complete* * Procedure Codes:? * Billing Information: * Visit Code:? 55011 Office Visit, New Pt., Level 4. * Procedure Codes:? * Sign off status: Completed true * Provider:?ANIA POWERS MD Date:?12/06/2023 Generated for Robert york/Srinivas/Timothy on:?10/03/2024 04:41 AM ASSET ADMINISTRATOR History and Physical Notes * HPI (History of Present Illness) Category Sub-Category Detail Notes Category Not es positive ROSI She saw me 10 years ago for [...] rash, +hair loss, no photosensitivity, no Raynaud's 08/24/2023, CBC nornal CMP normal 11/04/2022, ROSI 1:80 (homogenous), RF (-), CRP and ESR normal Examination Category Sub-Category Detail Notes Category Not es Rheumatology JOINT EXAM: no synovitis, no trigger points, +midline tenderness at LS and TS Neurology nonfocal Psychiatry Affect / mood: appropriate General Examination General appearance: alert, w ell-nourished and in no acute distress Head: normocephalic, atrau matic Eyes: normal Ears: normal Neck / thyroid: neck is supple, with full range of motion Heart: regular rate and rhy thm Lungs: clear to auscultatio n bilaterally Abdomen: soft, nontender Skin: skin is warm and dry , with no rashes Lymph nodes: no cervical lymphade nopathy
== END 2024-09-27 10:56 | disposition home or self-care (01) ==
PROVIDERS: Anesthesiology; PCP Nurse Practitioner Family; Visit Provider Internal Medicine Gastroenterology
PROC: 0DJD8ZZ Inspection of Lower Intestinal Tract, Via Natural or Artificial Opening Endoscopic (ICD-10-PCS; CPT 45378; principal; 2024-09-27 10:30)
DX: Z12.11 Encounter for screening for malignant neoplasm of colon (principal); K63.5 Polyp of colon; F41.8 Other specified anxiety disorders; E66.9 Obesity, unspecified; Z68.30 Body mass index [BMI] 30.0-30.9, adult; Z79.85 Long-term (current) use of injectable non-insulin antidiabetic drugs; Z98.890 Other specified postprocedural states; Z98.51 Tubal ligation status; Z87.891 Personal history of nicotine dependence; Z80.42 Family history of malignant neoplasm of prostate; Z82.49 Family history of ischemic heart disease and other diseases of the circulatory system
CPT/HCPCS: 45385; 88305; J2003; J2704; J7120

== ENCOUNTER 2025-01-30 12:53 | Outpatient (CLI) | payer OTHER, SELFPAY ==
--- NOTE | ~2025-01-30 | US_ITS ---
EXAMINATION: US FNA additional, US FNA w image guidance DATE: 01/30/2025 14:00 INDICATION: Bilateral thyroid nodules TECHNIQUE: A time-out was performed to verify the patient's name, date of , and procedure to be performed . The procedure and its benefits and risks were discussed with the patient. Risks specifically discus sed included bleeding and infection. The patient understood the risks and agreed to proceed. The neck was prepped and draped in the usual sterile manner. Attention was first turned to the right thyroid nodule. 4 mL 1% lidocaine was used for local anesthesia. 4 passes were made with a 25G needle into t he lesion. Appropriate needle location was documented with continuous sonographic guidance. Attentio n was then turned to the left thyroid nodule. 3 mL 1% lidocaine was used for local anesthesia. 4 pass es were made with a 25G needle into the lesion with continuous sonographic guidance. A sterile bandag e was applied. There were no immediate complications. FINDINGS: Grayscale ultrasound images demonstrate biopsy needles advanced into a 2.9 x 2.2 cm nodule in the mid right thyroid. Subsequent images demonstrate biopsy needles advanced into a second 2.9 x 1.7 cm nodu les in the superior left thyroid. IMPRESSION: 1. Successful ultrasound-guided fine needle aspiration of a 2.9 cm right thyroid nodule. 2. Successful ultrasound-guided fine-needle aspiration of a 2.9 smears left thyroid nodule. Reviewed, dictated and finalized at location A. IMPRESSION: 1. Successful ultrasound-guided fine needle aspiration of a 2.9 cm right thyro id nodule. 2. Successful ultrasound-guided fine-needle aspiration of a 2.9 smears left thy roid nodule.
--- OUTSIDE RECORDS SUMMARY | 2025-01-30 12:58 | XMS_ITS ---
Author Organization [facility] Address [address] [address] Care Team Providers Care Surg Tech Name Role Phone Scot Wright MD Primary Care Provider Unavail able Ania Powers Unavailable [phone] Allergies Allergen (clinical drug ingredient) Drug/Non Drug Allergy documented on EMR Reaction Allergy Type Onset Date Status LamISIL Unknown Drug Allergy Active REASON FOR VISIT yd,f/u labs,cc, positive ROSI, PCP: Dr. Scot Wright, [address] [place] [address],tel [phone], fax [phone] Medications Medication SIG (Take, Route, Fr equency, Duration) Notes Start Date End Date Status Gabapentin 300 MG 1 capsule Orally twi ce a day for 30 days 12/18/2023 Active ALPRAZolam 0.5 MG 1 tablet Orally Twice a day Active Zoloft 100 MG 1 tablet Orally Once a day Active Encounters Encounter Location Date Provider Diagnosis [facility] [address] [address] 12/18/2023 Ania Powers Pain in unspecified joint [...] * Nyla MCLEOD LDOB:1975 (48 yo F)Acc No.[id number]:12/18/2023 Patient: Nyla DEJESUS Provider: Jabari POWERS MD :1975 A ge:48 Y S ex:Female Date:12/18/2023 Address:[address] [place] [address] Pcp:Scot Wright MD Subjective: * Chief Complaints: * Y d,f/u labs,ccpositive ANAPCP: Dr. Scot Wright, [facility] [place] [address], tel [phone], fax [phone] * HPI: G eneral Follow up: Synchronous video/audio telecommunication with [place] Patient has agreed to telehealth visit and is aware insurance will be billed for this visit Location: patient at home, physician in office. p ositive ROSI: upper back and low back hurting today [...] CR 0.85, AST/ALT normal, CBC normal, , anti-DNA/SM/SEED TECHNICIAN/scl70/SSA/SSB (-), lupus anticoagulant (-), ACL IgM and IgA (-), G6PD normal, CK normal. ESR normal, CRP 0.96 (0-0.5), RF/CCP (-), HCV (-), C3 and C4 normal, UA normal, HLA-B27 (-), 08/24/2023, CBC nornal CMP normal 11/04/2022, ROSI 1:80 (homogenous), RF (-), CRP and ESR normal. * ROS: G eneral / Constitutional: Patient denies c hange in appetite, chills, fatigue, fever, weight loss, weakness. C omments S [facility] for details. M usculoskeletal: Comments [facility] for details. S kin: Comments [facility] for details . N eurologic: Patient denies d izziness, gait abnormality, headache, tingling / numbness . * Medical History: * Surgical History: D &C, vaginal reconstruction, LEEP, colposcopy, cryotherapy - cervix * Hospitalization/Major Diagno stic Procedure: * Family History: prostate cancer, stroke, arthritis. * Social History: + smoking on and off since age 16. * Medications: T akingALPRAZolam 0.5 MG Tablet 1 tablet Orally Twice a day Zoloft 100 MG Tablet 1 tablet Orally Once a day Taking ALPRAZolam 0.5 MG Tablet 1 tablet Orally Twice a day Taking Zoloft 100 MG Tablet 1 tablet Orally Once a day * Allergies: L amISIL: Allergy - Criticality Unknownno[Allergies Verified] Objective: * Vitals: * Examination: G eneral Examination: General appearance: a lert, well-nourished and in no acute distress. Head: n ormocephalic, atraumatic. Eyes: n ormal. Skin: n o rash. Lungs: r espiratory effort normal. P sychiatry: Affect / mood: n ormal affect, normal mood. ? N eurology: s peech normal. Assessment: * Assessment: 1. P ain in unspecified joint - M25.50 (Primary) 2 . A NA positive - R76.8 3 . L umbar back pain - M54.50 4 . N ralph pain, musculoskeletal - M54.2 labs reviewed, ROSI again pos itive, other markers (-), does not meet criteria of lupus, will monitor, start PT and gabapentin for neck and back pain. Plan: * Treatment: * Procedure Codes: * Billing Information: * Visit Code: 91044 Office Visit, Est Pt., Level 4. Modifiers: 95 * Procedure Codes: * Sign off status: Completed true * Provider: Jabari POWERS MD Date: 0 12/18/2023 Generated for Robert york/Srinivas/Timothy on: 0 01/30/2025 12:58 PM CDT History and Physical Notes * HPI (History of Present Illness) Category Sub-Category Detail Notes Category Not es General Follow up Synchronous video/audio telecommunication with [place] Patient has agreed to telehealth visit and [...] CR 0.85, AST/ALT normal, CBC normal, , anti-DNA/SM/SEED TECHNICIAN/scl70/SSA/SSB (-), lupus anticoagulant (-), ACL IgM and [...]
--- OUTSIDE RECORDS SUMMARY | 2025-01-30 12:59 | XMS_ITS ---
Author Organization [facility] Address [address] [facility] [address] [place] [address] Care Team Providers Care Research Administrator Name Role Phone Scot Wright MD Primary Care Provider Unavail able Ania Cordoba [phone] REASON FOR VISIT labs/tele Encounters Encounter Location Date Provider Diagnosis [facility] [address] [facility] [address] [place] [address] 12/14/2023 Ania Cordoba Plan Of Treatment No Information Progress Notes * Nyla MCLEOD LDOB:1975 (48 yo F)Acc No.[id number]:12/14/2023 Patient: Ángel HERNANDEZ Nyla Sloan :1975 A ge:48 Y S ex:Female Address:[address] [place] [address], [address] * true * Date: Generated for Printi ng/Faxing/eTransmitting on: 0 01/30/2025 12:58 PM CDT
--- OUTSIDE RECORDS SUMMARY | 2025-01-30 12:59 | XMS_ITS | Data Portability ---
Author Organization [facility], Main Office Address [address] [place] [address] Assessment Encounter Date Assessment Date Assessment LastModified by Organization Details LastModified Time 06/24/2024 06/24/2024 49-year-old female presents for evaluation of her right knee. She reports 3-4 months of atraumatic pain that is getting progressively worse. It is worse at the end of the day after she has been standing all day, with swelling, and posterior pain. 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 [...] Surgeries None recorded. Imaging XR, knee 2023 [email or web address] [facility], [address], [place], [address], 12:20:17 Medication Orders meloxicam 15 mg tablet 2023 [email or web address] [facility] #[id number], [address], [place], [place], [id number], 5 07:47:50 phentermine 37.5 mg tablet [id number] [facility]58802, [address], [place], [place], [id number], 09:16:56 alprazolam 0.5 mg tablet 2022 023 [email or web address] [facility] #[id number], [address], [place], [place], [id number], 09:15:20 Patient TargetsNo targets recorded. Patient InstructionsNo instructions recorded. Reason for Referral None Reported. Results Created Date Observation Date Name Description Value Unit Range Abnormal Flag Note LastModifiedBy Organization Detail LastModifiedTime 11/08/1911/08/2022 COLOG UARD cologuard result cancel led - duplic ate order not applic able Not Available [facility] (Cologuard Orders Only) [address], [place], [address], 11/08/2022 09:16:16 11/07/1911/07/2022 VITAM IN D,25- OH,TO IRAJ,I A vitamin [...] /MS is recom mt d: order code [id number] (dutch ents >2yrs ). See Note 1 NO COLLE CTION DATE RECEI LIZ. WE HAVE USED THE DATE THE SPECI MEN WAS RECEI LIZ BY THIS LABOR ATORY THE COLLE CTION DATE. IF THIS IS INCOR RECT, RASHIDA E CONTA CT CLIEN T SERVI DESTIN. PHONE NUMBE R: [phone] Note 1 For addit ional infor rashida dias refer to http: //[facility] omar martin.Que stDia gnost ics.c om/fa q/FAQ 199 (This link is being provi ded for infor teodora mancini/ educa alisson toure purpo ses only. ) Not Available [employer] [facility] [address] [place], [address], 11/07/2022 10:47:01 11/07/19 23 11/07/2022 TSH TSH 1.76 mIU/L normal Refer ence Range > or = 20 Years 0.40- 4.50 Pregn fany Range s First trime ster 0.26- 2.66 Secon d trime ster 0.55- 2.73 Third trime ster 0.43- 2.91 Not Available [employer] [facility] [address] [place], [address], 11/07/2022 10:47:00 11/07/19 23 11/07/2022 ANTIN UCLEA R ANTIB ODIES TITER AND PATTE RN ROSI titer 1:80 titer high A low level ROSI titer may be prese nt in pre-c linic al autoi mmune disea ses and luis alberto l indiv idual s. Refer ence Range <1:40 Negat soraida 1:40- 1:80 Low Antib umang Level >1:80 [place] catherine Antib umang Level Not Available [facility] [address], [place], [address], 11/07/2022 10:46:59 11/07/19 23 11/07/2022 ANTIN UCLEA R ANTIB ODIES TITE R AND JAYLA RN ROSI pattern nuclea r, homoge neous abnormal Homog eneou s patte rn is assoc iated with syste bev lupus eryth emato lloyd (SLE) , drug- induc ed lupus and josseline ile idiop athic arthr itis. AC-1: Homog eneou s Inter natio nal Conse nsus on ROSI Patte rns (http s://d oi.or g/10. 1515/ [facility]- 2017- 0052) Not Available [facility] [address], [place], [address], 11/07/2022 10:46:59 11/07/19 23 11/07/2022 ROSI SCREE N, IFA, W/REF L TITER /RAVEN FACUNDO (REFL ) ROSI screen, ifa positi ve negati ve abnormal ROSI IFA is a first line scree n for detec ting the prese nce of up to appro ximat jackeline 150 autoa ntibo dies in vario us autoi mmune disea ses. A posit soraida ROSI IFA resul t is sugge stive of autoi mmune disea se and refle xes to titer and jayla rn. Furth er labor atory testi ng may be consi dered if clini jessica indic ated. For addit ional infor teodora martin, rashida e refer to http: //sarah martin.Que stDia gnost ics.c om/fa q/FAQ 177 (This link is being provi ded for infor teodora mancini/ educa alisson l purpo ses only. ) Not Available [facility] [address], [place], [address], 11/07/2022 10:46:59 11/07/19 23 11/07/2022 C-NARCISO CTIVE PROTE IN C-reactive protein 2.3 mg/L <8.0 normal Not Available [address], [address], 11/07/2022 10:46:58 11/07/1911/07/2022 RHEUM ATOID FACTO R rheumatoid factor <14 IU/mL <14 normal Not Available [address], [address], 11/07/2022 10:46:57 11/07/19 23 11/07/2022 CBC (INCL UDES DIFF/ PLT) white blood cell count 6.3 thous and/u L 3.8-10 .8 normal Not Available [address], [address], 11/07/2022 10:46:56 11/07/19 23 11/07/2022 CBC (INCL UDES DIFF/ PLT) red blood cell count 4.80 baudilio on/uL 3.80-5 .10 normal Not Available [address], [address], 11/07/2022 10:46:56 11/07/19 23 11/07/2022 CBC (INCL UDES DIFF/ PLT) hemoglobin 14.5 g/dL 11.7-1 5.5 normal Not Available [address], [address], 11/07/2022 10:46:56 11/07/19 23 11/07/2022 CBC (INCL UDES DIFF/ PLT) hematocrit 42.8 % 35.0-4 5.0 normal Not Available [address], [address], 11/07/2022 10:46:56 11/07/19 23 11/07/2022 CBC (INCL UDES DIFF/ PLT) MCV 89.2 fL 80.0-1 00.0 normal Not Available [address], [address], 11/07/2022 10:46:56 11/07/19 23 11/07/2022 CBC (INCL UDES DIFF/ PLT) MCH 30.2 pg 27.0-3 3.0 normal Not Available [address], [address], 11/07/2022 10:46:56 11/07/19 23 11/07/2022 CBC (INCL UDES DIFF/ PLT) MCHC 33.9 g/dL 32.0-3 6.0 normal Not Available [address], [address], 11/07/2022 10:46:56 11/07/19 23 11/07/2022 CBC (INCL UDES DIFF/ PLT) RDW 12.5 % 11.0-1 5.0 normal Not Available [address], [address], 11/07/2022 10:46:56 11/07/19 23 11/07/2022 CBC (INCL UDES DIFF/ PLT) platelet count 273 thous and/u L 140-40 0 normal Not Available [address], [address], 11/07/2022 10:46:56 11/07/19 23 11/07/2022 CBC (INCL UDES DIFF/ PLT) MPV 10.1 fL 7.5-12 .5 normal Not Available [address], [address], 11/07/2022 10:46:56 11/07/19 23 11/07/2022 CBC (INCL UDES DIFF/ PLT) absolute neutrophils 3364 cells /uL 1500-7 800 normal Not Available [address], [address], 11/07/2022 10:46:56 11/07/19 23 11/07/2022 CBC (INCL UDES DIFF/ PLT) absolute lymphocytes 2249 cells /uL 850-39 00 normal Not Available [address], [address], 11/07/2022 10:46:56 11/07/19 23 11/07/2022 CBC (INCL UDES DIFF/ PLT) absolute monocytes 586 cells /uL 200-95 0 normal Not Available [address], [address], 11/07/2022 10:46:56 11/07/19 23 11/07/2022 CBC (INCL UDES DIFF/ PLT) lymphocytes 35.7 % normal Not Available [address], [address], 11/07/2022 10:46:56 11/07/19 23 11/07/2022 CBC (INCL UDES DIFF/ PLT) absolute eosinophils 82 cells /uL 15-500 normal Not Available [address], [address], 11/07/2022 10:46:56 11/07/19 23 11/07/2022 CBC (INCL UDES DIFF/ PLT) absolute basophils 19 cells /uL 0-200 normal Not Available [address], [address], 11/07/2022 10:46:56 11/07/19 23 11/07/2022 CBC (INCL UDES DIFF/ PLT) neutrophils 53.4 % normal Not Available [address], [address], 11/07/2022 10:46:56 11/07/19 23 11/07/2022 CBC (INCL UDES DIFF/ PLT) monocytes 9.3 % normal Not Available [address] [place], [address], 11/07/2022 10:46:56 11/07/19 23 11/07/2022 CBC (INCL UDES DIFF/ PLT) eosinophils 1.3 % normal Not Available [address], [address], 11/07/2022 10:46:56 11/07/19 23 11/07/2022 CBC (INCL UDES DIFF/ PLT) basophils 0.3 % normal Not Available [address], [address], 11/07/2022 10:46:56 11/07/19 23 11/07/2022 SED RATE BY MODIF IED WESTE RGREN sed rate by modified westergren 2 mm/h < or = 20 normal Not Available [address], [address], 11/07/2022 10:46:56 11/07/19 23 11/07/2022 COMPR EHENS SORAIDA METAB OLIC PANEL urea nitrogen (BUN) 14 mg/dL 7-25 normal Not Available [address], [address], 11/07/2022 10:46:55 11/07/19 23 11/07/2022 COMPR EHENS SORAIDA METAB OLIC PANEL glucose 75 mg/dL 65-99 normal Fasti ng refer ence inter dion Not Available [address], [address], 11/07/2022 10:46:55 11/07/19 23 11/07/2022 COMPR EHENS SORAIDA METAB OLIC PANEL creatinine 0.88 mg/dL 0.50-0 .99 normal Not Available [address], [address], 11/07/2022 10:46:55 11/07/19 23 11/07/2022 COMPR EHENS SORAIDA METAB OLIC PANEL eGFR 82 mL/mi n/1.7 3m2 > or = 60 normal The eGFR is based on the CKD-E PI 2020 equat ion. To calcu late the new eGFR from a previ ous Creat inine or Cysta tin C resul t, go to https ://wendy garibay.ainsley chinchilla/shaun ramirez s/ kdoqi /gfr% 5Fcal culat or Not Available [address] [address] [place], [address], 11/07/2022 10:46:55 11/07/19 23 11/07/2022 COMPR EHENS SORAIDA METAB OLIC PANEL BUN/creatini ne ratio not applic able (calc ) 6-22 Not Available [address] [address] [place], [address], 11/07/2022 10:46:55 11/07/19 23 11/07/2022 COMPR EHENS SORAIDA METAB OLIC PANEL sodium 137 mmol/ L 135-14 6 normal Not Available [address], [address], 11/07/2022 10:46:55 11/07/19 23 11/07/2022 COMPR EHENS SORAIDA METAB OLIC PANEL potassium 4.2 mmol/ L 3.5-5. 3 normal Not Available [address], [address], 11/07/2022 10:46:55 11/07/19 23 11/07/2022 COMPR EHENS SORAIDA METAB OLIC PANEL chloride 102 mmol/ L 98-110 normal Not Available [address], [address], 11/07/2022 10:46:55 11/07/19 23 11/07/2022 COMPR EHENS SORAIDA METAB OLIC PANEL carbon dioxide 25 mmol/ L 20-32 normal Not Available [address], [address], 11/07/2022 10:46:55 11/07/19 23 11/07/2022 COMPR EHENS SORAIDA METAB OLIC PANEL calcium 9.1 mg/dL 8.6-10 .2 normal Not Available [address] [place], [address], 11/07/2022 10:46:55 11/07/19 23 11/07/2022 COMPR EHENS SORAIDA METAB OLIC PANEL protein, total 6.7 g/dL 6.1-8. 1 normal Not Available [address], [address], 11/07/2022 10:46:55 11/07/19 23 11/07/2022 COMPR EHENS SORAIDA METAB OLIC PANEL albumin 4.2 g/dL 3.6-5. 1 normal Not Available [address], [address], 11/07/2022 10:46:55 11/07/19 23 11/07/2022 COMPR EHENS SORAIDA METAB OLIC PANEL globulin 2.5 g/dL_ (calc ) 1.9-3. 7 normal Not Available [address], [address], 11/07/2022 10:46:55 11/07/19 23 11/07/2022 COMPR EHENS SORAIDA METAB OLIC PANEL albumin/glob ulin ratio 1.7 (calc ) 1.0-2. 5 normal Not Available [address], [address], 11/07/2022 10:46:55 11/07/19 23 11/07/2022 COMPR EHENS SORAIDA METAB OLIC PANEL bilirubin, total 0.3 mg/dL 0.2-1. 2 normal Not Available [address], [address], 11/07/2022 10:46:55 11/07/19 23 11/07/2022 COMPR EHENS SORAIDA METAB OLIC PANEL alkaline phosphatase 55 U/L 31-125 normal Not Available [address], [address], 11/07/2022 10:46:55 11/07/19 23 11/07/2022 COMPR EHENS SORAIDA METAB OLIC PANEL AST 19 U/L 10-35 normal Not Available [address], [address], 11/07/2022 10:46:55 11/07/19 23 11/07/2022 COMPR EHENS SORAIDA METAB OLIC PANEL ALT 20 U/L 6-29 normal Not Available [address], [address], 11/07/2022 10:46:55 11/07/19 23 11/07/2022 LIPID PANEL (REFL ) triglyceride s 49 mg/dL <150 normal Not Available [address], [address], 11/07/2022 10:46:54 11/07/19 23 11/07/2022 LIPID PANEL (REFL ) cholesterol, total 221 mg/dL <200 high Not Available [address], [address], 11/07/2022 10:46:54 11/07/19 23 11/07/2022 LIPID PANEL (REFL ) HDL cholesterol 90 mg/dL > or = 50 normal Not Available [address], [address], 11/07/2022 10:46:54 11/07/19 23 11/07/2022 LIPID PANEL (REFL ) LDL-choleste rol 116 mg/dL _(lelo c) high Refer ence range : <100 Norris able range <100 mg/dL for prima ry preve ntion ; <70 mg/dL for patie nts with CHD or diabe tic patie nts with > or = 2 CHD risk facto rs. LDL-C is now calcu lated using the Coretta n-Hop chandana jose n, which is a valid ated novel fernandoo d provi ding leni r accur acy than the Fried christiana equat ion in the estim ation of LDL-C . Coretta n SS et al. MARSHA. 2013; 310(1 9): 2061- 2068 (http ://ed ucati on.Baron Cardenas andresjeannine GoodThreads. com/f aq/FA Q164) Not Available [facility] [address] [place], [address], 11/07/2022 10:46:54 11/07/19 23 11/07/2022 LIPID PANEL (REFL ) chol/HDLC ratio 2.5 (calc ) <5.0 normal Not Available [facility] [address] [place], [address], 11/07/2022 10:46:54 11/07/19 23 11/07/2022 LIPID PANEL (REFL ) non HDL cholesterol 131 mg/dL _(lelo c) <130 high For patie nts with diabe chantal plus 1 major ASCVD risk facto r, treat ing to a non-H DL-C goal of <100 mg/dL (LDL- C of <70 mg/dL ) is consi romana friedo n. Not Available [facility] [address] [place], [address], 11/07/2022 10:46:54 08/24/20 23 08/24/2023 CBC/C OMPLE TE BLD COUNT W/DIF F white blood cells 9.5 x10'3 /uL 4.2-[address] [facility] (Lab) [address] [place], [address], 08/24/2023 20:03:42 08/24/20 23 08/24/2023 CBC/C OMPLE TE BLD COUNT W/DIF F red blood cells 4.54 x10'6 /uL 3.80-[address] [facility] (Lab) [address] [place], [address], 08/24/2023 20:03:42 08/24/20 08/24/2023 CBC/C OMPLE TE BLD COUNT W/DIF F hemoglobin 14.0 g/dL 12.0-[address] [facility] (Lab) [address] [place], [address], 08/24/2023 20:03:42 08/24/20 23 08/24/2023 CBC/C OMPLE TE BLD COUNT W/DIF F hematocrit 42.7 % 35.7-4 5.7 Not Available [facility] (Lab) [address] [place], [address], 08/24/2023 20:03:42 08/24/20 23 08/24/2023 CBC/C OMPLE TE BLD COUNT W/DIF F mean red cell volume 94.1 fL 82.0-[address] [facility] (Lab) [address] [place], [address], 08/24/2023 20:03:42 08/24/20 23 08/24/2023 CBC/C OMPLE TE BLD COUNT W/DIF F mean red cell hemoglobin 30.8 pg 27.0-[address] [facility] (Lab) [address] [place], [address], 08/24/2023 20:03:42 08/24/20 23 08/24/2023 CBC/C OMPLE TE BLD COUNT W/DIF F mean RBC HGB concentratio n 32.8 g/dL 31.0-[address] [facility] (Lab) [address] [place], [address], 08/24/2023 20:03:42 08/24/20 23 08/24/2023 CBC/C OMPLE TE BLD COUNT W/DIF F red cell distribution width 13.0 % 11.8-[address] [facility] (Lab) [address] [place], [address], 08/24/2023 20:03:42 08/24/20 23 08/24/2023 CBC/C OMPLE TE BLD COUNT W/DIF F platelets 270 x10'3 /uL 150-40 0 Not Available [facility] (Lab) [address] [place], [address], 08/24/2023 20:03:42 08/24/20 23 08/24/2023 CBC/C OMPLE TE BLD COUNT W/DIF F mean platelet volume 10.2 fL 9.0-12 .4 Not Available [facility] (Lab) [address] [place], [address], 08/24/2023 20:03:42 08/24/20 23 08/24/2023 CBC/C OMPLE TE BLD COUNT W/DIF F neutrophils 59.1 % 39.0-7 2.0 Not Available [facility] (Lab) [address] [place], [address], 08/24/2023 20:03:42 08/24/20 23 08/24/2023 CBC/C OMPLE TE BLD COUNT W/DIF F lymphocytes 29.1 % 16.0-4 7.0 Not Available [facility] (Lab) [address] [place], [address], 08/24/2023 20:03:42 08/24/20 23 08/24/2023 CBC/C OMPLE TE BLD COUNT W/DIF F monocytes 10.1 % 5.0-[address] [facility] (Lab) [address] [place], [address], 08/24/2023 20:03:42 08/24/20 23 08/24/2023 CBC/C OMPLE TE BLD COUNT W/DIF F eosinophils 1.0 % 1.0-7. [address] [facility] (Lab) [address] [place], [address], 08/24/2023 20:03:42 08/24/20 23 08/24/2023 CBC/C OMPLE TE BLD COUNT W/DIF F basophils 0.4 % 0.0-2. [address] [facility] (Lab) [address] [place], [address], 08/24/2023 20:03:42 08/24/20 23 08/24/2023 CBC/C OMPLE TE BLD COUNT W/DIF F immature granulocytes 0.3 % 0.00-[address] [facility] (Lab) [address] [place], [address], 08/24/2023 20:03:42 08/24/20 23 08/24/2023 CBC/C OMPLE TE BLD COUNT W/DIF F neutrophils, absolute count 5.63 x10'3 /uL 1.5-8. [address] [facility] (Lab) [address] [place], [address], 08/24/2023 20:03:42 08/24/20 23 08/24/2023 CBC/C OMPLE TE BLD COUNT W/DIF F lymphocytes, absolute count 2.78 x10'3 /uL 1.07-[address] [facility] (Lab) [address] [place], [address], 08/24/2023 20:03:42 08/24/20 23 08/24/2023 CBC/C OMPLE TE BLD COUNT W/DIF F monocytes, absolute count 0.96 x10'3 /uL 0.29-[address] [facility] (Lab) [address] [place], [address], 08/24/2023 20:03:42 08/24/20 23 08/24/2023 CBC/C OMPLE TE BLD COUNT W/DIF F eosinophils, absolute count 0.10 x10'3 /uL 0.02-[address] [facility] (Lab) [address] [place], [address], 08/24/2023 20:03:42 08/24/20 23 08/24/2023 CBC/C OMPLE TE BLD COUNT W/DIF F basophils, absolute count 0.04 x10'3 /uL 0.01-[address] [facility] (Lab) [address] [place], [address], 08/24/2023 20:03:42 08/24/20 23 08/24/2023 CBC/C OMPLE TE BLD COUNT W/DIF F immature granulocytes ,absolute 0.03 x10'3 /uL 0.00-[address] [facility] (Lab) [address] [place], [address], 08/24/2023 20:03:42 08/24/20 23 08/24/2023 CBC/C OMPLE TE BLD COUNT W/DIF F nucleated red blood cells 0.0 % -0 Not Available [facility] (Lab) [address] [place], [address], 08/24/2023 20:03:42 08/24/20 23 08/24/2023 CBC/C OMPLE TE BLD COUNT W/DIF F NRBC# 0.00 x10'3 /uL Not Available [facility] (Lab) [address] [place], [address], 08/24/2023 20:03:42 08/24/20 23 08/24/2023 COMPR EHENS SORAIDA METAB OLIC PANEL sodium 138 mmol/ L 137-[address] [facility] (Lab) [address] [place], [address], 08/24/2023 20:13:33 08/24/20 23 08/24/2023 COMPR EHENS SORAIDA METAB OLIC PANEL potassium 4.3 mmol/ L 3.5-5. [address] [facility] (Lab) [address] [place], [address], 08/24/2023 20:13:33 08/24/20 23 08/24/2023 COMPR EHENS SORAIDA METAB OLIC PANEL chloride 104 mmol/ L 98-[address] [facility] (Lab) [address] [place], [address], 08/24/2023 20:13:33 08/24/20 23 08/24/2023 COMPR EHENS SORAIDA METAB OLIC PANEL carbon dioxide 27 mmol/ L 22-[address] [facility] (Lab) [address] [place], [address], 08/24/2023 20:13:33 08/24/20 23 08/24/2023 COMPR EHENS SORAIDA METAB OLIC PANEL anion gap 11.3 mmol/ L 14-[address] [facility] (Lab) [address] [place], [address], 08/24/2023 20:13:33 08/24/20 23 08/24/2023 COMPR EHENS SORAIDA METAB OLIC PANEL glucose 84 mg/dL 70-[address] [facility] (Lab) [address] [place], [address], 08/24/2023 20:13:33 08/24/20 23 08/24/2023 COMPR EHENS SORAIDA METAB OLIC PANEL BUN 14 mg/dL 8-[address] [facility] (Lab) [address] [place], [address], 08/24/2023 20:13:33 08/24/20 23 08/24/2023 COMPR EHENS SORAIDA METAB OLIC PANEL creatinine 0.79 mg/dL 0.66-[address] [facility] (Lab) [address] [place], [address], 08/24/2023 20:13:33 08/24/20 23 08/24/2023 COMPR EHENS SORAIDA METAB OLIC PANEL GFR >60 Refer ence Range : [place] ge GFR Healt hy Adult : >60 [...] calcu lator is avail able on the [facility] websi te: https ://wendy garibay.ainsley chinchilla/shaun ramirez s/kdo qi/gf r_cal culat or Not Available [facility] (Lab) [address] [place], [address], 08/24/2023 20:13:33 08/24/20 23 08/24/2023 COMPR EHENS SORAIDA METAB OLIC PANEL alkaline phosphatase 65 U/L 38-126 Not Available [facility] (Lab) [address] [place], [address], 08/24/2023 20:13:33 08/24/20 23 08/24/2023 COMPR EHENS SORAIDA METAB OLIC PANEL alanine aminotransfe rase 33 U/L 0-35 Not Available [facility] (Lab) [address] [place], [address], 08/24/2023 20:13:33 08/24/20 23 08/24/2023 COMPR EHENS SORAIDA METAB OLIC PANEL aspartate aminotransfe rase 37 U/L 15-37 Not Available [facility] (Lab) [address] [place], [address], 08/24/2023 20:13:33 08/24/20 23 08/24/2023 COMPR EHENS SORAIDA METAB OLIC PANEL bilirubin, total 0.40 mg/dL 0.20-[address] [facility] (Lab) [address] [place], [address], 08/24/2023 20:13:33 08/24/20 23 08/24/2023 COMPR EHENS SORAIDA METAB OLIC PANEL calcium 9.2 mg/dL 8.4-[address] [facility] (Lab) [address] [place], [address], 08/24/2023 20:13:33 08/24/20 23 08/24/2023 COMPR EHENS SORAIDA METAB OLIC PANEL total protein 7.5 g/dL 6.3-8. [address] [facility] (Lab) [address] [place], [address], 08/24/2023 20:13:33 08/24/20 23 08/24/2023 COMPR EHENS SORAIDA METAB OLIC PANEL albumin 4.3 g/dL 3.4-5. [address] [facility] (Lab) [address] [place], [address], 08/24/2023 20:13:33 08/24/20 23 08/24/2023 COMPR EHENS SORAIDA METAB OLIC PANEL globulin 3.2 g/dL 2.6-4. [address] [facility] (Lab) [address] [place], [address], 08/24/2023 20:13:33 08/24/20 23 08/24/2023 COMPR EHENS SORAIDA METAB OLIC PANEL A/G ratio 1.3 ratio 1.0-2. 0 Not Available [facility] (Lab) [address] [place], [address], 08/24/2023 20:13:33 11/24/19 24 11/24/2023 CBC/C OMPLE TE BLD COUNT W/DIF F white blood cells 6.5 x10'3 /uL 4.2-[address] [facility] (Lab) [address] [place], [address], 11/24/2023 20:20:12 11/24/19 24 11/24/2023 CBC/C OMPLE TE BLD COUNT W/DIF F red blood cells 4.73 x10'6 /uL 3.80-5 .20 Not Available [facility] (Lab) [address] [place], [address], 11/24/2023 20:20:12 11/24/19 24 11/24/2023 CBC/C OMPLE TE BLD COUNT W/DIF F hemoglobin 14.3 g/dL 12.0-[address] [facility] (Lab) [address] [place], [address], 11/24/2023 20:20:12 11/24/19 24 11/24/2023 CBC/C OMPLE TE BLD COUNT W/DIF F hematocrit 44.5 % 35.7-[address] [facility] (Lab) [address] [place], [address], 11/24/2023 20:20:12 11/24/19 24 11/24/2023 CBC/C OMPLE TE BLD COUNT W/DIF F mean red cell volume 94.1 fL 82.0-[address] [facility] (Lab) [address] [place], [address], 11/24/2023 20:20:12 11/24/19 24 11/24/2023 CBC/C OMPLE TE BLD COUNT W/DIF F mean red cell hemoglobin 30.2 pg 27.0-[address] [facility] (Lab) [address] [place], [address], 11/24/2023 20:20:12 11/24/19 24 11/24/2023 CBC/C OMPLE TE BLD COUNT W/DIF F mean RBC HGB concentratio n 32.1 g/dL 31.0-[address] [facility] (Lab) [address] [place], [address], 11/24/2023 20:20:12 11/24/19 24 11/24/2023 CBC/C OMPLE TE BLD COUNT W/DIF F red cell distribution width 13.5 % 11.8-[address] [facility] (Lab) [address] [place], [address], 11/24/2023 20:20:12 11/24/19 24 11/24/2023 CBC/C OMPLE TE BLD COUNT W/DIF F platelets 257 x10'3 /uL 150-[address] [facility] (Lab) [address] [place], [address], 11/24/2023 20:20:12 11/24/19 24 11/24/2023 CBC/C OMPLE TE BLD COUNT W/DIF F mean platelet volume 10.3 fL 9.0-[address] [facility] (Lab) [address] [place], [address], 11/24/2023 20:20:12 11/24/19 24 11/24/2023 CBC/C OMPLE TE BLD COUNT W/DIF F neutrophils 47.1 % 39.0-[address] [facility] (Lab) [address] [place], [address], 11/24/2023 20:20:12 11/24/19 24 11/24/2023 CBC/C OMPLE TE BLD COUNT W/DIF F lymphocytes 41.3 % 16.0-[address] [facility] (Lab) [address] [place], [address], 11/24/2023 20:20:12 11/24/19 24 11/24/2023 CBC/C OMPLE TE BLD COUNT W/DIF F monocytes 8.7 % 5.0-[address] [facility] (Lab) [address] [place], [address], 11/24/2023 20:20:12 11/24/19 24 11/24/2023 CBC/C OMPLE TE BLD COUNT W/DIF F eosinophils 2.0 % 1.0-7. [address] [facility] (Lab) [address] [place], [address], 11/24/2023 20:20:12 11/24/19 24 11/24/2023 CBC/C OMPLE TE BLD COUNT W/DIF F basophils 0.6 % 0.0-2. [address] [facility] (Lab) [address] [place], [address], 11/24/2023 20:20:12 11/24/19 24 11/24/2023 CBC/C OMPLE TE BLD COUNT W/DIF F immature granulocytes 0.3 % 0.00-[address] [facility] (Lab) [address] [place], [address], 11/24/2023 20:20:12 11/24/19 24 11/24/2023 CBC/C OMPLE TE BLD COUNT W/DIF F neutrophils, absolute count 3.05 x10'3 /uL 1.5-8. [address] [facility] (Lab) [address] [place], [address], 11/24/2023 20:20:12 11/24/19 24 11/24/2023 CBC/C OMPLE TE BLD COUNT W/DIF F lymphocytes, absolute count 2.67 x10'3 /uL 1.07-[address] [facility] (Lab) [address] [place], [address], 11/24/2023 20:20:12 11/24/19 24 11/24/2023 CBC/C OMPLE TE BLD COUNT W/DIF F monocytes, absolute count 0.56 x10'3 /uL 0.29-[address] [facility] (Lab) [address] [place], [address], 11/24/2023 20:20:12 11/24/19 24 11/24/2023 CBC/C OMPLE TE BLD COUNT W/DIF F eosinophils, absolute count 0.13 x10'3 /uL 0.02-[address] [facility] (Lab) [address] [place], [address], 11/24/2023 20:20:12 11/24/19 24 11/24/2023 CBC/C OMPLE TE BLD COUNT W/DIF F basophils, absolute count 0.04 x10'3 /uL 0.01-[address] [facility] (Lab) [address] [place], [address], 11/24/2023 20:20:12 11/24/19 24 11/24/2023 CBC/C OMPLE TE BLD COUNT W/DIF F immature granulocytes ,absolute 0.02 x10'3 /uL 0.00-[address] [facility] (Lab) [address] [place], [address], 11/24/2023 20:20:12 11/24/19 24 11/24/2023 CBC/C OMPLE TE BLD COUNT W/DIF F nucleated red blood cells 0.0 % -0 Not Available [facility] (Lab) [address] [place], [address], 11/24/2023 20:20:12 11/24/19 24 11/24/2023 CBC/C OMPLE TE BLD COUNT W/DIF F NRBC# 0.00 x10'3 /uL Not Available [facility] (Lab) [address] [place], [address], 11/24/2023 20:20:12 11/24/19 24 11/24/2023 RHEUM ATOID FACTO R rf <8.6 IU/mL 0.0-[address] [facility] (Lab) [address] [place], [address], 11/24/2023 20:45:41 11/24/19 24 11/24/2023 T3 TOTAL T3, total 1.450 NG/mL 0.970- 1.[address] [facility] (Lab) [address] [place], [address], 11/24/2023 21:05:57 11/24/19 24 11/24/2023 SEDIM ENTAT ION RATE erythrocyte sedimentatio n rate 14 mm/HR 0-20 Not Available [facility] (Lab) [address] [place], [address], 11/24/2023 20:47:55 11/24/19 24 11/24/2023 T4 FREE free T4 0.88 NG/dL 0.78-[address] [facility] (Lab) [address] [place], [address], 11/24/2023 20:51:56 11/24/19 24 11/24/2023 TSH thyroid-stim ulating hormone 0.942 uIU/m L 0.465- 4.[address] [facility] (Lab) [address] [place], [address], 11/24/2023 21:05:55 11/24/19 24 11/28/2023 ROSI BY IFA RFX TITER /RAVEN FACUNDO antinuclear antibodies, ifa Positi ve abnormal Negat soraida <1:80 Borde rline 1:80 Posit soraida >1:80 Perfo rmed at: CB - [facility] n [address] [place] [address], [place] [address] Lab Direc tor: Mustapha pires PhD, Phone : [phone] [facility] (Lab) [address] [place], [address], 11/28/2023 09:13:10 11/24/19 24 11/28/2023 ROSI BY IFA RFX TITER /RAVEN FACUNDO homogeneous pattern 1:80 ICAP ashanti mcneil re: AC-[address] [facility] (Lab) [address] [place], [address], 11/28/2023 09:13:10 11/24/19 24 11/28/2023 ROSI BY IFA RFX TITER /RAVEN FACUNDO anasp4 Commen t abnormal . [facility] ----- ----- [...] Syste bev Lupus Eryth emato lloyd, Subac minto Cutan eous Lupus , Neona iraj Lupus [...] ----- ----- ----- ----- Perfo rmed at: - [facility] [address] [facility], [place] [address] Lab Direc tor: Mustapha pires PhD, Phone : [phone] [facility] (Lab) [address] [place], [address], 11/28/2023 09:13:10 12/04/19 24 12/04/2023 COMPR EHENS SORAIDA METAB OLIC PANEL sodium 138 mmol/ L 137-14 5 Not Available [facility] (Lab) [address] [place], [address], 12/04/2023 19:13:13 12/04/19 24 12/04/2023 COMPR EHENS SORAIDA METAB OLIC PANEL potassium 3.7 mmol/ L 3.5-5. [address] [facility] (Lab) [address] [place], [address], 12/04/2023 19:13:13 12/04/19 24 12/04/2023 COMPR EHENS SORAIDA METAB OLIC PANEL chloride 106 mmol/ L 98-[address] [facility] (Lab) [address] [place], [address], 12/04/2023 19:13:13 12/04/19 24 12/04/2023 COMPR EHENS SORAIDA METAB OLIC PANEL carbon dioxide 25 mmol/ L 22-[address] [facility] (Lab) [address] [place], [address], 12/04/2023 19:13:13 12/04/19 24 12/04/2023 COMPR EHENS SORAIDA METAB OLIC PANEL anion gap 10.7 mmol/ L 14-[address] [facility] (Lab) [address] [place], [address], 12/04/2023 19:13:13 12/04/19 24 12/04/2023 COMPR EHENS SORAIDA METAB OLIC PANEL glucose 52 mg/dL 70-[address] [facility] (Lab) [address] [place], [address], 12/04/2023 19:13:13 12/04/19 24 12/04/2023 COMPR EHENS SORAIDA METAB OLIC PANEL BUN 15 mg/dL 8-[address] [facility] (Lab) [address] [place], [address], 12/04/2023 19:13:13 12/04/19 24 12/04/2023 COMPR EHENS SORAIDA METAB OLIC PANEL creatinine 0.69 mg/dL 0.66-[address] [facility] (Lab) [address] [place], [address], 12/04/2023 19:13:13 12/04/19 24 12/04/2023 COMPR EHENS SORAIDA METAB OLIC PANEL GFR >60 Refer ence Range : [place] ge GFR Healt hy Adult : >60 [...] calcu lator is avail able on the [facility] websi te: [email or web address] :[email or web address] [email or web address]/pr [email or web address] ional [email or web address]/kdo [email or web address]/gf r_cal culat or Not Available [facility] (Lab) [address] [place], [address], 12/04/2023 19:13:13 12/04/19 24 12/04/2023 COMPR EHENS SORAIDA METAB OLIC PANEL alkaline phosphatase 60 U/L 38-126 Not Available [facility] (Lab) [address] [place], [address], 12/04/2023 19:13:13 12/04/19 24 12/04/2023 COMPR EHENS SORAIDA METAB OLIC PANEL alanine aminotransfe rase 31 U/L 0-35 Not Available [facility] (Lab) [address] [place], [address], 12/04/2023 19:13:13 12/04/19 24 12/04/2023 COMPR EHENS SORAIDA METAB OLIC PANEL aspartate aminotransfe rase 32 U/L 15-37 Not Available [facility] (Lab) [address] [place], [address], 12/04/2023 19:13:13 12/04/19 24 12/04/2023 COMPR EHENS SORAIDA METAB OLIC PANEL bilirubin, total 0.40 mg/dL 0.20-[address] [facility] (Lab) [address] [place], [address], 12/04/2023 19:13:13 12/04/19 24 12/04/2023 COMPR EHENS SORAIDA METAB OLIC PANEL calcium 9.7 mg/dL 8.4-[address] [facility] (Lab) [address] [place], [address], 12/04/2023 19:13:13 12/04/19 24 12/04/2023 COMPR EHENS SORAIDA METAB OLIC PANEL total protein 7.2 g/dL 6.3-8. [address] [facility] (Lab) [address] [place], [address], 12/04/2023 19:13:13 12/04/19 24 12/04/2023 COMPR EHENS SORAIDA METAB OLIC PANEL albumin 4.4 g/dL 3.4-5. [address] [facility] (Lab) [address] [place], [address], 12/04/2023 19:13:13 12/04/19 24 12/04/2023 COMPR EHENS SORAIDA METAB OLIC PANEL globulin 2.8 g/dL 2.6-4. [address] [facility] (Lab) [address] [place], [address], 12/04/2023 19:13:13 12/04/19 24 12/04/2023 COMPR EHENS SORAIDA METAB OLIC PANEL A/G ratio 1.6 ratio 1.0-2. [address] [facility] (Lab) [address] [place], [address], 12/04/2023 19:13:13 12/04/19 24 12/06/2023 INSUL IN insulin 6.5 uIU/m L 2.6-24 .9 Perfo rmed at: - [facility] [address] [place] [address] Lab Direc tor: Mustapha pires PhD, Phone : [phone] [facility] (Lab) [address] [place], [address], 12/06/2023 11:12:54 01/03/20 25 01/02/2025 CBC W/O DIFFE RENTI AL white blood cells 7.9 x10'3 /uL 4.2-[address] [facility] (Lab) [address] [place], [address], 01/02/2025 19:52:30 01/03/20 25 01/02/2025 CBC W/O DIFFE RENTI AL red blood cells 4.52 x10'6 /uL 3.80-[address] [facility] (Lab) [address] [place], [address], 01/02/2025 19:52:30 01/03/20 25 01/02/2025 CBC W/O DIFFE RENTI AL hemoglobin 13.2 g/dL 12.0-[address] [facility] (Lab) [address] [place], [address], 01/02/2025 19:52:30 01/03/20 25 01/02/2025 CBC W/O DIFFE RENTI AL hematocrit 41.5 % 35.7-[address] [facility] (Lab) [address] [place], [address], 01/02/2025 19:52:30 01/03/20 25 01/02/2025 CBC W/O DIFFE RENTI AL mean red cell volume 91.8 fL 82.0-[address] [facility] (Lab) [address] [place], [address], 01/02/2025 19:52:30 01/03/20 25 01/02/2025 CBC W/O DIFFE RENTI AL mean red cell hemoglobin 29.2 pg 27.0-[address] [facility] (Lab) [address] [place], [address], 01/02/2025 19:52:30 01/03/20 25 01/02/2025 CBC W/O DIFFE RENTI AL mean RBC HGB concentratio n 31.8 g/dL 31.0-[address] [facility] (Lab) [address] [place], [address], 01/02/2025 19:52:30 01/03/20 25 01/02/2025 CBC W/O DIFFE RENTI AL red cell distribution width 13.9 % 11.8-[address] [facility] (Lab) [address] [place], [address], 01/02/2025 19:52:30 01/03/20 25 01/02/2025 CBC W/O DIFFE RENTI AL platelets 268 x10'3 /uL 150-[address] [facility] (Lab) [address] [place], [address], 01/02/2025 19:52:30 01/03/20 25 01/02/2025 CBC W/O DIFFE RENTI AL mean platelet volume 10.0 fL 9.0-[address] [facility] (Lab) [address] [place], [address], 01/02/2025 19:52:30 01/03/20 25 01/02/2025 T3 FREE free T3 3.1 pg/mL 2.77-[address] [facility] (Lab) [address] [place], [address], 01/02/2025 20:47:53 01/03/20 25 01/02/2025 T4 FREE free T4 0.36 NG/dL 0.78-[address] [facility] (Lab) [address] [place], [address], 01/02/2025 20:47:59 01/03/20 25 01/02/2025 TSH thyroid-stim ulating hormone 41.200 uIU/m L 0.465- 4.[address] [facility] (Lab) [address] [place], [address], 01/02/2025 21:03:16 01/04/2001/04/2025 THYRO ID PEROX IDASE (TPO) AB thyroid peroxidase (tpo) Ab 260 IU/mL 0-34 high Perfo rmed at: [place] [id number] [place] [address] Lab Direc tor: Mustapha pires PhD, Phone : [phone] [facility] (Lab) [address] [place], [address], 01/04/2025 08:12:22 01/04/2001/18/2025 THYRO GLOB AB/RF X THYRO GLOBU ELLEN thyroglobuli n antibody 13.7 IU/mL 0.0-0. 9 high Thyro globu ellen Antib umang measu red by Rick lima Metho dolog y . It shoul d be noted that the prese nce of thyro globu ellen antib odies may not be patho genic nor diagn ostic , espec ially at very low level s. The assay annemarie actur er has found that four perce nt of indiv idual s witho ut evide nce of thyro id disea se or autoi mmuni ty will have posit soraida TgAb level s up to 4 IU/mL . Perfo rmed at: [facility] [address] [place] [address] Lab Direc tor: Mustapha pires PhD, Phone : [phone] [facility] (Lab) [address] [place], [address], 01/18/2025 20:09:20 01/04/2001/18/2025 THYRO GLOB AB/RF X THYRO GLOBU ELLEN thyroglobuli n antibody 13.7 IU/mL 0.0-0. 9 high Thyro globu ellen Antib umang measu red by Rick [place] er Metho dolog y . It shoul d be noted that the prese nce of thyro globu ellen antib odies may not be patho genic nor diagn ostic , espec ially at very low level s. The assay manuf actur er has found that four perce nt of indiv idual s witho ut evide nce of thyro id disea se or autoi mmuni ty will have posit soraida TgAb level s up to 4 IU/mL . Perfo rmed at: - [facility] [address] [facility], [place], [place] [address] Lab Direc tor: Mustapha desmond pires PhD, Phone : [phone] [facility] (Lab) [address] [place], [address], 01/18/2025 20:09:21 01/04/20 25 01/18/2025 THYRO GLOB AB/RF X THYRO GLOBU ELLEN thyroglobuli n by tana 15 NG/mL This test was devel oped and its perfo rmanc e jessi cteri stics deter mined by [facility]. It has not been clear ed or appro liz by the Food and Drug Admin istra tion. Refer ence Range : Puber iraj Child liz and Adult s: <40 Accor ding to the Natio nal Acade my of Clini lelo Bioch emist ry, the refer ence inter dion for Thyro globu ellen (TG) shoul d be relat ed to euthy roid patie nts and not for patie nts who under went thyro idect jake. TG refer ence inter vals for these patie nts depen d on the resid ual mass of the thyro id tissu e left after surge ry. Estab lishi ng a post- opera tive basel ine is recom mt d. The assay quant itati on limit is 2.0 ng/mL . Perfo rmed at: [facility] [address] [place] [address] Lab Direc tor: Paolo lima MD, Phone : [phone] [facility] (Lab) [address] [place], [address], 01/18/2025 20:09:21 08/22/20 23 08/22/2023 elect jc barry am No observ ation record ed. BARCODE Not Available 2022 17:44:22 08/23/20 23 08/22/2023 CT, chest , w/o contr ast [facility] [address] [facility] [address], [place] [address] Patien t Name: NYLA MCLEOD Access ion #: [id number] Sex: F : 1974 2 Dictat [...] at 2022 09:03: 57 AM Page [email or web address] [facility] (Imaging) [address] [place], [address], 08/23/2023 14:41:23 08/23/20 23 08/22/2023 CT, chest , w/o contr ast No observ ation record ed. [email or web address] [facility] ([facility]) [address] [place], [address], 10/26/2023 09:11:28 12/08/19 24 12/07/2023 XR, thora cic spine , 3 view No observ ation record ed. [email or web address] [facility] [address] [place], [address], 12/12/2023 09:54:27 12/08/19 24 12/07/2023 XR, lumba r spine No observ ation record ed. [email or web address] [facility] [address] [place], [address], 10/29/2024 11:33:24 12/08/19 24 12/07/2023 XR, cervi lelo spine No observ ation record ed. [email or web address] [facility] [address] [place], [address], 12/12/2023 09:56:06 06/24/20 24 XR, knee No observ ation record ed. [email or web address] [facility] [address] [facility], [place], [address], 06/24/2024 09:20:34 08/06/20 24 08/06/2024 US, marily whatley, limit ed [facility] [address] [place] [address] Patien t Name: NYLA MCLEOD Access ion #: [id number] Sex: F : 1974 5 Dictat [...] at 2023 12:10: 44 PM Page [address] (Imaging) [address] [place], [address], 08/12/2024 12:15:30 08/06/20 24 08/06/2024 MAMMO , diagn ostic , digit al, bilat eral No observ ation record ed. [address] ([employer] Sched[facility]) [address] [place], [address], 08/12/2024 12:16:43 08/06/20 24 08/06/2024 MAMMO , diagn ostic , tomos ynthe sis, bilat eral [facility] [address] [place], [place] [phone] Patien t Name: NYLA MCLEOD Access ion #: [id number] Sex: F : 1974 5 Dictat [...] ound and no Page 1 [facility] [address] [place] [address] [phone] Patien t Name: ISAAC MCLEODA Access ion #: [id number] Sex: F : 1974 5 Dictat ed By: Sarah pete Attend ing Physic darrion: YARY ER, GEORGI Orderi ng Physic darrion: YARY LAUREANO ER [...] at 2023 11:28: 13 AM Page [address] (Imaging) [address] [place], [address], 08/12/2024 12:16:44 08/06/20 24 08/06/2024 MAMMO , diagn ostic , digit al, bilat eral No observ ation record ed. [email or web address] ([facility] Scheduling) [address] [place], [address], 08/12/2024 12:16:44 01/03/20 25 01/02/2025 US, head + neck, soft tissu e [facility] [address] [place] [address] [phone] Patien t Name: NYLA MCLEOD Access ion #: [id number] Sex: F : 1974 0 Dictat ed By: Bill Streeter Attend ing Physic darrion: YARY LAUREANO Orderkenya york Physic darrion: YARY LAUREANO ER Exam Date: 2024 12:55 PM Exam Name: US NECK HEAD SOFT TISSUE Admitt ing Diagno sis(es ): ULTRAS OUND SOFT TISSUE [facility] AL INDICA TION: nodule TECHNI QUE: Multip le real time sonogr aphic images of the thyroi d were obtain ed. FINDIN GS: The right thyroi d gland measur es 5 cm. The left thyroi d gland measur es approx imatel y 5 cm. The isthmu s measur es 0.7 cm. Bilate ral TI-RAD S 3 nodule s measur ing up to 2 cm in the right superi or lobe and 2.3 cm in the left superi or lobe. IMPRES LUANN: 1. Bilate ral TI-RAD S 3 nodule s measur ing up to 2 cm in the right superi or lobe and 2.3 cm in the left superi or lobe. [employer] TI-RAD S Catego saulo and Recomm endati ons (2017) : TR1: 0 points , Benign , No FNA TR2: 2 points , Not suspic ious, No FNA TR3: 3 points , Mildly suspic ious, FNA if > or = 2.5 cm, Follow if > or = 1.5 cm Page 1 [facility] [address] [address] Patien t Name: NYLA MCLEOD Access ion #: [id number] Sex: F : 1974 0 Dictat ed By: Bill Streeter Attend ing Physic darrion: GEORGI POWER Physic darrion: JIM LAUREANOROXANNA ER Exam Date: 2024 12:55 PM Exam Name: US NECK HEAD SOFT TISSUE Admitt ing Diagno sis(es ): TR4: 4-6 points , Modera tely Suspic ious, FNA if > or = 1.5 cm, Follow if > or = 1.0 cm TR5: 7+ points , Highly Suspic ious, FNA if > or = 1.0 cm, Follow if > or = 0.5 cm Follow -up ultras ound guidel milka: TR5: yearly for 5 years, if no growth or change in TI-RAD S level TR4: at 1, 2, 3 and 5 years, if no growth or change in TI-RAD S level TR3: at 1, 3 and 5 years, if no growth or change in TI-RAD S level If increa sed but below thresh old for FNA, repeat in one year. Source : ACR Thyroi d Edinsonin g, Report ing and Data System (TI-RA DS): White Paper of the ACR TI-RAD S Commit joe. Shivani et al., J Am Raysa Radiol 2017;1 4:587- 595. Electr onical ly Signed by: Bill Streeter at 2024 14:38: 07 PM Page [email or web address] [place] [address] (Imaging) [address] [place], [address], 01/02/2025 16:44:21 01/03/20 25 01/02/2025 imagi chela/june leija t No observ ation record ed. [facility] [address] [place], [address], 01/02/2025 15:44:47 01/28/20 25 08/06/2024 US, marily t, limit ed [facility] [address] [place] [address] [phone] Patien t Name: NYLA MCLEOD Access ion #: [id number] Sex: F : 1974 5 Dictat ed By: Sarah pete Attend ing Physic darrion: YARY LAUREANO ER Orderi ng Physic darrion: YARY LAUREANO ER Exam Date: 2023 10:19 AM Exam Name: US BREAST LIMITE D RT Admitt ing Diagno sis(es ): ADDEND UM # 1 Pat york BI-RAD S 2 BI-RAD S 3 for this report to ok arriaga to the BIRADS report ed on same day combin ed report for diagno stic mammog adrianne and ultras ound. Althou gh the ultras ound findin g is most likely a benign intram ammary lymph node, 6-osorio h follow -up ultras ound recomm ended as descri bed in same day diagno stic mammog adrianne report . Electr onical ly Signed by: Sarah pete at 2024 08:03: 32 AM ORIGIN AL REPORT US OF THE RIGHT BREAST INDICA TION: [...] nt cysts are presen t. IMPRES LUANN: Page 1 [facility] [address] [place] [address] Patien t Name: NYLA MCLEOD Access ion #: [id number] Sex: F : 1974 5 Dictat ed By: Sarah pete Attend ing Physic darrion: GEORGI POWER Physic darrion: YARY LAUREANO ER Exam Date: 2023 10:19 AM Exam Name: US BREAST LIMITE D RT Admitt ing Diagno sis(es ): There is no sonogr aphic eviden ce for malign fany. Annual screen ing mammog ca recomm ended. ACR Bi Rads Catego ry:Cat egory 2 Electr onical ly Signed by: Sarah pete at 2024 08:03: 32 AM Page [email or web address] [facility] (Imaging) [address] [place], [address], 01/27/2025 12:25:45 01/28/20 25 08/06/2024 imagi ng/di agnos tic resul t No observ ation record ed. [facility] [address] [place], [address], 01/27/2025 11:11:55 01/29/20 25 08/06/2024 MAMMO , diagn ostic , digit al, bilat eral No observ ation record ed. [email or web address] [facility] ([facility]) [address] [place], [address], 01/29/2025 14:19:54 01/29/20 25 01/28/2025 XR, knee, 3 view No observ ation record ed. [email or web address] [facility] [address] [place], [address], 01/28/2025 16:42:32 01/29/20 25 01/28/2025 imagi ng/di agnos tic resul t No observ ation record ed. [facility] [address] [place], [address], 01/28/2025 16:08:58 Result Notes None recorded. Problems Name Problem SNOMED Code Status Onset Date Resolution Date Notes Provider Name and Address Organization Details Recorded Time Celluliti s 270378867 Completed Not Available [facility] 3 03:07:21 Has a sore throat 944276284 Active 2021 Not Available [facility] 3 03:07:21 Irritable bowel syndrome with diarrhea 856659076 Active 2019 Not Available [facility] 3 03:07:21 Abdominal pain 18331576 Completed Not Available [facility] 3 03:07:21 Malaise and fatigue 682784928 Active Not Available [facility] 3 03:07:21 Knee pain Completed Not Available [facility] 3 03:07:21 Depressiv e disorder 93658085 Active Not Available [facility] 3 03:07:21 Ingrowing nail 678474495 Active Not Available [facility] 3 03:07:21 Onychomyc osis 297802678 Active Not Available [facility] 3 03:07:21 Eczema 57263776 Completed Not Available [facility] 3 03:07:22 Otitis 01413028 Completed Not Available [facility] 3 03:07:22 Anxiety 97337075 Active 2019 Not Available [facility] 3 03:07:22 Pain of wrist region 10486074 Completed Not Available [facility] 3 03:07:22 Essential hypertens ion 79160616 Active Not Available [facility] 3 03:07:22 Tinea pedis 8218339 Active Not Available [facility] 3 03:07:22 Vitamin deficienc y 12161284 Active Not Available [facility] 3 03:07:22 Bilateral glaucoma [id number] 333789 Active 2022 Carolann Dodd MA null, [facility] 3 15:40:15 Lateral epicondyl itis of left humerus 99312968720 9100 Active 2022 Tae Garza MD [address] [address], [place], [address] , [facility] 3 11:20:06 Overweigh t 078656522 Active 2022 Tae Garza MD [address] [address], [place], [address] , [facility] 3 11:20:19 Pulmonary embolism 99990484 Active 2022 Chani Quintero LPN null, [facility] 3 13:15:01 Serum creatinin e above reference range 782424322 Active 2022 Scot Laureano MD [address] [facility], [address], [place], [address] , [facility] 3 17:14:21 Vitamin D deficienc y 81352882 Active 2023 NURIA Olivarez [address], [address], [place], [address] , [facility] 4 17:48:10 Fatigue 76062170 Active 2023 Denia Lanier WALL TO WALL CARPET INSTALLER null, [place] [facility] 4 14:05:19 Hyperglyc emia 83010813 Active 2023 Nyla martin RMA null, [place] - [facility] 4 13:55:40 Hypoglyce jodi 797244572 Active 2023 Nyla martin RMA null, [place] [facility] 4 13:57:31 Generaliz ed anxiety disorder 63142543 Active 2023 Emmie Fontenot NP [address], [facility] [address], [place], [address] , [facility] 4 10:17:44 Acute sinusitis 92510663 Active 2023 Chani Quintero LPN null, [place] [facility] 4 09:16:44 Pain of right knee joint 25902001505 4100 Active 2023 Radhadaren Kincaid, TRIMMER CLIMBER null, [place] [facility] 4 09:20:13 Alopecia areata of eyelash Active 2023 Chani Quintero LPN null, [place] [facility] 4 09:45:13 Breast lump 49755626 Active 2023 Chani Quintero LPN null, [place] [facility] 4 10:58:20 Obesity 162826795 Active 2024 Emmie Fontenot NP [address] [facility], [address], [place], [address] , [facility] 5 16:51:09 Allergic rhinitis 57795046 Active 2024 Yoly Ruiz MA null, [facility] 5 15:57:22 Thyroid nodule 652538377 Active 2024 Chani Quintero LPN null, [facility] 5 12:46:16 Disorder of thyroid gland 38616985 Active 2024 Chani Quintero LPN null, [facility] 5 16:12:28 Hypothyro idism 62308611 Active 2024 NATALIA Sainz, [facility] 5 11:01:44 Arthritis 4119649 Active 2024 Chani Quintero LPN null, [facility] 5 11:02:38 Thyroid stimulati ng hormone level above reference range 776362282 Active 2024 NATALIA Sainz, [facility] 5 11:04:36 Pain of left knee joint 44266761622 4107 Active 2024 NATALIA Sainz, [facility] 5 10:17:53 Mammograp hy abnormal 855895001 Active 2024 Chani Quintero LPN null, [facility] 5 14:21:02 Notes:Some problems listed i n Document: #[id number] could not be added to this patient's chart. Please review this document and add these problems to the patient's chart manually as needed. Problem Notes None recorded. Procedures Surgical History Date Name Laterality Status Provider Name and Address Organization Details Recorded Time 3 Cortisone Injection (Dequervains/ Greater Trochantric/ Lateral Epicondylitis/ Shoulder/ Subacromial Space/ Knee or Trigger Finger) completed Tae Garza MD [address], [address], [place], [address], [place] [facility] 06/07/2023 20:02:19 Imaging Results Imaging Date Name Status LastModified by Organization Details LastModified Time 08/22/2023 electrocardiogram completed BARCODE Informa tion not available 08/22/2023 17:44:22 08/22/2023 CT, chest, w/o contrast completed [email or web address] [place] [address] (Imaging) [address] [place], [address], 08/23/2023 14:41:23 08/22/2023 CT, chest, w/o contrast completed [email or web address] ([facility] Scheduling) [address] [place], [address], 10/26/2023 09:11:28 12/07/2023 XR, thoracic spine, 3 view completed [address] [place], [address], 12/12/2023 09:54:27 12/07/2023 XR, [email or web address] [place] [address] [address] [place], [address], 10/29/2024 11:33:24 12/07/2023 XR, cervical spine completed [address] [place], [address], 12/12/2023 09:56:06 06/24/2024 XR, knee completed [email or web address] [facility] [address] [facility], [place], [address], 06/24/2024 09:20:34 08/06/2024 US, breast, limited completed [email or web address] [facility] (Imaging) [address] [place], [address], 08/12/2024 12:15:30 08/06/2024 MAMMO, diagnostic, digital, bilateral completed [email or web address] ([facility] [employer] [facility]) [address] [place], [address], 08/12/2024 12:16:43 08/06/2024 MAMMO, diagnostic, tomosynthesis, bilateral completed [email or web address] (Imaging) [address] [place], [address], 08/12/2024 12:16:44 08/06/2024 MAMMO, diagnostic, digital, bilateral completed [address] ([employer] Scheduling) [address] [place], [address], 08/12/2024 12:16:44 01/02/2025 US, head + neck, soft tissue completed [email or web address] (Imaging) [address] [place], [address], 01/02/2025 16:44:21 01/02/2025 imaging/diagnostic result active [facility] [address] [place], [address], 01/02/2025 15:44:47 08/06/2024 US, breast, limited completed [address] (Imaging) [address] [place], [address], 01/27/2025 12:25:45 08/06/2024 imaging/diagnostic result active [facility] [address] [place], [address], 01/27/2025 11:11:55 08/06/2024 MAMMO, diagnostic, digital, bilateral completed [address] ([employer] Scheduling) [address] [place], [address], 01/29/2025 14:19:54 01/28/2025 XR, knee, [address] [facility] [address] [place], [address], 01/28/2025 16:42:32 01/28/2025 imaging/diagnostic result active [facility] [address] [place], [address], 01/28/2025 16:08:58 Procedure Notes None recorded. Medical Equipment None Reported. Allergies Allergen ID Allergen Name Allergen Category Reaction Reaction Severity Criticality Documentation Date Start Date Code Code System Note Provider Name and Address Organization Details Recorded Time 5683 Levsin medicatio n Not available Not available Not available 11/09/2022 01153 3 RxNorm Not Available [facility] 03:16:37 Medications Name Sig Start Date Stop Date Status Note LastModified by Organization Details LastModified Time compounde d medicatio n inject subcutan eously weekly: 0.05 ml (5units) for 4 weeks, then 0.1ml (10 units) for 4 weeks, then 0.2ml (20 units) for 4 weeks 01/06 completed Not Available Not Available Not Available cyclobenz aprine 10 mg tablet TAKE 1 TABLET 3 TIMES A DAY BY ORAL ROUTE NEEDED. active Not Available Not Available No t Available amoxicill in 500 mg capsule TAKE 1 CAPSULE BY MOUTH THREE TIMES DAILY FOR 7 DAYS 01/06 completed Not Available Not Available Not Available [...] TABLET BY MOUTH EVERY 6 HOURS NEEDED 01/06 completed Not Available Not Available Not Available fluconazo le 150 mg tablet TAKE [...] TAKE 1 TABLET BY MOUTH EVERY DAY 01/06 completed Not Available Not Available Not Available Nicoderm CQ 21 mg/24 hr daily transderm al patch Apply 1 patch(es ) EVERY DAY by transder mal route. 02/01 completed Not Available Not Available Not Available sertralin e 100 mg tablet TAKE 1 TABLET BY MOUTH EVERY DAY active Not Available Not Available No t Available methylpre dnisolone 4 mg tablet 12/24 [...] tablet TAKE 1 TABLET BY MOUTH DAILY NEEDED FOR ANXIETY active Not Available Not Available No t Available propranol ol 10 mg tablet 05/28 [...] completed Not Available Not Available Not Available levothyro xine 50 mcg tablet TAKE 1 TABLET BY MOUTH EVERY DAY active Not Available Not Available No t Available cephalexi n 500 mg capsule Take [...] completed Not Available Not Available Not Available monteluka st 10 mg tablet Take 1 tablet every day by oral route for 90 days. 2024 active Not Available Not Available Not Avai lable hydroxyzi ne HCl 25 mg tablet TAKE 1 TABLET BY MOUTH EVERY DAY AT BEDTIME FOR 30 DAYS 05/25 completed Not Available Not Available Not Available norethind divya acetate 1 mg-ethiny l estradiol 20 mcg tablet 01/06 completed Not Available Not Available Not Available [...] 4 mg tablets in a dose pack FOLLOW PACKAGE DIRECTIO NS active Not Available Not Available No t Available ketoconaz ole 2 % topical cream APPLY TO THE AFFECTED AREA(S) twice daily 11/29 completed Not Available Not Available Not Available sertralin e 50 mg tablet TAKE 1 TABLET BY MOUTH DAILY active Not Available Not Available No t [...] completed Not Available Not Available Not Available cholecalc iferol (vitamin D3) 1,250 mcg (50,000 unit) capsule TAKE ONE CAPSULE BY MOUTH WEEKLY 01/06 completed Not Available Not Available Not Available bimatopro st 0.03 % drops with applicato r, eyelash base APPLY 1 DROP TO APPLICAT OR AND APPLY TO UPPER EYELID, ALONG EYELASHE S, BY TOPICAL ROUTE ONCE DAILY AT NIGHTTIM E 01/06 completed Not Available Not Available Not Available Paxlovid 300 mg (150 mg x 2)-100 mg tablets in a dose pack TAKE 2 NIRMATRE LVIR AND 1 RITONAVI R TABLETS BY MOUTH TOGETHER TWICE DAILY FOR 5 DAYS 11/02 completed Not Available Not Available Not Available Zepbound 5 mg/0.5 mL subcutane ous pen injector ADMINIST ER 5 MG UNDER THE SKIN WEEKLY 01/06 completed Not Available Not Available Not Available Zepbound 2.5 mg/0.5 mL subcutane ous pen injector ADMINIST ER 2.5 MG UNDER THE SKIN WEEKLY FOR 4 WEEKS 01/06 completed Not Available Not Available Not Available Vitals Date Recorded Body height Body mass index (BMI) Body weight Body temperature Heart rate Oxygen saturation Oxygen saturation in Arterial blood by Pulse oximetry Systolic blood pressure Diastolic blood pressure Provider Name and Address Organization Details Last Updated DateTime 3 154.94 cm 30.6 kg/m2 80254.9 6 g 97.5 [degF] 96 /min 97 % 97 % 128 mm[Hg] 80 mm[Hg] Denia cook CMA [place] [facility] 3 11:13:05 Date Recorded Body height Body mass index (BMI) Body weight Provider Name and Address Organization Details Last Updated DateTime 06/24/2024 152.4 cm 34 kg/m2 00571.07 g Radha Kincaid CNA [place] [facility] 06/24/2024 09:14:30 Date Recorded Body mass index (BMI) Body height Oxygen saturation Oxygen saturation in Arterial blood by Pulse oximetry Heart rate Body temperature Body weight Systolic blood pressure Diastolic blood pressure Provider Name and Address Organization Details Last Updated DateTime 1 29.9 kg/m2 154.94 cm 97 % 97 % 80 /min 96.7 [degF] 39522.5 9 g 160 mm[Hg] 100 mm[Hg] Not Available [facility] 3 03:03:08 Date Recorded Body mass index (BMI) Body height Oxygen saturation Oxygen saturation in Arterial blood by Pulse oximetry Heart rate Body temperature Body weight Systolic blood pressure Diastolic blood pressure Provider Name and Address Organization Details Last Updated DateTime 3 28.5 kg/m2 154.94 cm 97 % 97 % 80 /min 98.1 [degF] 38697.4 5 g 140 mm[Hg] 80 mm[Hg] Not Available [facility] 3 03:03:08 Date Recorded Body mass index (BMI) Body height Oxygen saturation Oxygen saturation in Arterial blood by Pulse oximetry Heart rate Body temperature Body weight Systolic blood pressure Diastolic blood pressure Provider Name and Address Organization Details Last Updated DateTime 3 29.7 kg/m2 154.94 cm 98 % 98 % 77 /min 98.1 [degF] 25719 g 148 mm[Hg] 100 mm[Hg] Not Available [facility] 3 03:03:08 Social History Question Answer Notes LastModified by Organizat ion Details LastModified Time Tobacco Smoking Status Former Smoker 3 a day trying to quit Not Available [facility] 11/09/2022 02:46:17 What Is Your Level Of Caffeine Consumption? Heavy [id number] Information not available 11/09/2022 In The 14 Days Before Symptom Onset, Have You Had Close Contact With A Laboratory-confir med COVID-19 While That Case Was Ill? No [id number] Information not available 11/09/2022 In The 14 Days Before Symptom Onset, Have You Had Close Contact With A Person Who Is Under Investigation For COVID-19 While That Person Was Ill? No [id number] Information not available 11/09/2022 What Type Of Diet Are You Following? REGULAR [id number].[id number] Information not available 11/09/2022 Have You Ever Been Counseled For Unhealthy Alcohol Use? No [id number].109602 0977 Information not available 11/09/2022 Has Tobacco Cessation Counseling Been Provided? No MIGRATION.[id number] 4307 Information not available 11/09/2022 Have You Recently Traveled Abroad? No MIGRATION.176789 5451 Information not available 11/09/2022 Do You Have Any Dietary Restrictions? No MIGRATION.298713 7697 Information not available 11/09/2022 Sex: Female Functional Status Question Answer Note LastModified by Organizat ion Details LastModified Time Do you use any illicit or recreational drugs? No [id number] 26 Information not available 11/09/2022 Do you or have you ever used any other forms of tobacco or nicotine? No MIGRATION.[id number] 26 Information not available 11/09/2022 What is your level of alcohol consumption? None [email or web address] Information not available 06/24/2024 What is your exercise level? None MIGRATION.[id number] 26 Information not available 11/09/2022 Mental Status None recorded. Family History Relationship Description Onset Age of this Age Resolved Age Notes LastModified by Organization Details LastModified Time Father Family history of stroke [email or web address] Not available 2023 09:17:50 Father Hypertensive disorder [email or web address] Not available 2023 09:18:03 Father Malignant neoplasm of prostate [email or web address] Not available 2023 09:18:16 [...] SNOMED-CT Code Diagnosis ICD10 Code Diagnosis Note [id number] Tae Garza MD [facility] Yusuf llguerrero [address] [place] [address] [place] [address] 05/25/2021 00:00:00 05/26/2021 06:32:39 [id number] Tae Garza MD [facility] Yusuf llguerrero [address] [place] [address] [place] [address] 09/21/2022 00:00:00 09/21/2022 19:39:20 [id number] Tae Garza MD [facility] Yusuf lle [address] [place] [address] [place] [address] 11/02/2022 00:00:00 11/02/2022 13:52:09 [id number] Tae Garza MD [facility] Yusuf llguerrero [address] [place] [address] [place] [address] 06/07/2023 10:54:44 06/07/2023 11:30:37 Lateral epicondylitis of left humerus 1733978151 40784 M77.12 Injected left elbow with cortisone Overweight 065432188 E66 .3 F/u in 1 month Anxiety 27492909 F41.9 [id number] Nader Perez MD [address] [address] 06/24/2024 08:31:30 06/24/2024 09:58:12 Pain of right knee joint 7680247141 01484 M25.561 Health Concerns Section Related Observation LastModified by Organization Detai ls LastModified Time None Recorded Concern Status LastModified by Organization Details LastModified Time None Recorded Advance Directives Directive None Recorded Payers Encounter Date Sequence Insurance Name Policy Number Policy Victor Covered Member ID Victor Member ID Guarantor Name 06/07/2023 1 [place] [id number] Nyla Mcleod [id number] Nyla Mcleod 06/24/2024 1 [place] [id number] Nyla Mcleod [id number] Nyla Mcleod Notes Date Note Type [...] refill of alprazolam. Tae Garza MD [address] [address], [place], [address], [facility] 06/07/2023 20:04:15 OBGyn Episode No OBEpisode recorded.
--- OUTSIDE RECORDS SUMMARY | 2025-01-30 12:59 | XMS_ITS ---
Author Organization [facility] guera Address [address] [facility] [address], [place] [address] Care Team Providers Care Tank Bottom Assembler Name Role Phone Scot Wright MD Primary Care Provider Unavail able Ania Powers Unavailable [phone] Allergies Allergen (clinical drug ingredient) Drug/Non Drug Allergy documented on EMR Reaction Allergy Type Onset Date Status LamISIL Unknown Drug Allergy Active REASON FOR VISIT positive ROSI, PCP: Dr. Scot Wright, [facility] [place] [address], tel [phone], fax [phone] Medications Medication SIG (Take, Route, Fr equency, [...] 12/06/2023 Encounters Encounter Location Date Provider Diagnosis [facility] [address] [facility] [address] [place] [address] 12/06/2023 Ania Powers Pain in unspecified joint [...] antibody 12/06/2023 Chem-Comprehensive 12/06/2023 [facility] 12/06/2023 OPERATIONS RESEARCH DIRECTOR Antibodies 12/06/2023 Progress Notes * Nyla MCLEOD LDOB:1975 (48 yo F)Acc No.[id number]:12/06/2023 Progress Notes Patient: Nyla DEJESUS Provider: Jabari POWERS MD :1975 A ge:48 Y S ex:Female Date:12/06/2023 Address:[address] [place] [address] Pcp:Scot Wright MD Subjective: * Chief Complaints: * p ositive ANAPCP: Dr. Scot Wright, [address] [place] [address], tel [phone], fax [phone] * HPI: p ositive ROSI: She saw me 10 years ago for [...] ROS: G eneral / Constitutional: Patient denies f ever. P atient complains of f atigue. O phthalmologic: Patient denies d ry eye(s). E NT: Patient denies o ral ulcers. E ndocrine: Patient denies h eat intolerance. R espiratory: Patient denies c ough, shortness of breath. ? C ardiovascular: Patient denies c hest pain. G astrointestinal: Patient denies a bdominal pain, blood in stool, diarrhea.? H ematology: Patient denies e asy bleeding, easy bruising. ? M usculoskeletal: Patient complains of s ee HPI. S kin: Patient complains of s ee HPI. N eurologic: Patient denies t ingling / numbness. P sychiatric: Patient complains of a nxiety, depressed mood, difficulty sleeping. * Medical History: * Surgical History: D [...] reviewed and reconciled with the patient * Allergies: L amISIL: Allergy - Criticality Unknownno[Allergies Verified] Objective: * Vitals: B P:134/82mm Hg, HR:102/min, Temp:96.8F, Oxygen sat %:96%, Wt:174.8lbs, Wt-k.29 kg. * Examination: G eneral Examination: General appearance: a lert, well-nourished and in no acute distress . Head: n ormocephalic, atraumatic . Eyes: n ormal. Ears: n ormal . Neck / thyroid: n ralph is supple, with full range of motion.? Lymph nodes: n o cervical lymphadenopathy. Skin: s kin is warm and dry, with no rashes . Heart: r egular rate and rhythm. Lungs: c lear to auscultation bilaterally. Abdomen: s oft, nontender. P sychiatry: Affect / mood: a ppropriate. R heumatology: J OINT EXAM: no synovitis, no trigger points, +midline tenderness at LS and TS. N eurology: n onfocal. Assessment: * Assessment: 1. P ain in unspecified joint - M25.50 (Primary) 2 . A NA positive - R76.8 3 . L umbar back pain - M54.50 4 . N ralph pain, musculoskeletal - M54.2 48 year old female with ache s and pains. ROSI was positive. I am asked to evaluate her for connective tissue disease. Serologies will be ordered. Xrays of the cervical, thoracic and lumbar spine will be ordered. I will make recommendations when these tests are completed. Plan: * Treatment: 2. L umbar back pain I maging: X ray : Spines, cervical 2 views ?Imaging: X ray : Spines, lumbar complete * ?Imaging: X ray : Thoracic spine 2 views* 3.?Neck pain, musculoskeletal?Imaging: X ray : Thoracic spine 2 views * ?Imaging: X ray : Spines, cervical 2 views * ?Imaging: X ray : Spines, lumbar complete* * Procedure Codes: * Billing Information: * Visit Code: 86917 Office Visit, New Pt., Level 4. * Procedure Codes: * Sign off status: Completed true * Provider: Jabari POWERS MD Date: 0 12/06/2023 Generated for Robert york/Srinivas/Jorgeitting on: 0 01/30/2025 12:58 PM CDT History [...]
--- OUTSIDE RECORDS SUMMARY | 2025-01-30 12:59 | XMS_ITS | Patient Health Record ---
Author Organization [facility] Address [address] [facility] [address] [place] [address] Care Team Providers Care Critical Systems Technician Name Role Phone Scot Wright MD Primary Care Provider Unavail able Allergies Allergen (clinical drug ingredient) Drug/Non Drug [...] Gabapentin 300 MG TAKE 1 CAPSULE BY [facility] TWICE DAILY for 30 Active Plan Of Treatment Pending Test Test Name [...] antibody 12/06/2023 Chem-Comprehensive 12/06/2023 [facility] Ab 12/06/2023 GENERAL PRODUCTION MANAGER Antibodies 12/06/2023 Insurance Providers Payer Name Payer Address Payer Phone Subscriber Number Group Number Insured Name Patient Relationship to Insured Coverage Start Date Coverage End Date [place] [address] [place] [address] [id number] Nyla Puga Self - patient is the insured Medical (General) History Medical History History ICD Code anxiety High blood pressure depression Surgical History Surgery Date(Month/Year) D&C, vaginal reconstruction, LEEP, colpo scopy, cryotherapy - cervix
== END 2025-01-30 12:54 | disposition home or self-care (01) ==
PROVIDERS: PCP Nurse Practitioner Family; Visit Provider Internal Medicine
DX: E04.2 Nontoxic multinodular goiter (principal)
CPT/HCPCS: 10005; 10006; 88172; 88173; 88305